=== PATIENT | male | born 1950 | race Caucasian/White ===

== ENCOUNTER 2016-02-27 09:28 | Inpatient (IN) ==
[2016-02-27] MEDS ORDERED: Naloxone 0.4 MG/ML INJ IVP PRN (10:09)
[2016-02-27] MEDS ORDERED: Acetaminophen 325 MG TABLET PO PRN (10:09)
--- NOTE | 2016-02-27 10:33 | Cardiology History & Physical ---
Date of Encounter: 02/27/16 Time of Encounter: 09:45 Assessment and Plan (1) Abnormal stress test Current Visit: Yes Status: Acute Stress test findings reviewed with patient. Perfusion imaging was positive for ischemia. EKG was non-diagnostic d/t baseline EKG changes. There was also EKG artifact during exercise. AT 1 min in recovery there was 1-[address] depression in the inferior and lateral leads and 1.[address] elevation in AVR which persisted 17 min into recovery. Blunted b/p response noted. Gated EF 64%. There is evidence of TID. Perfusion:small to medium sized mild intensity perfusion defect during stress involving the mid- distal anterior wall and apex. D/t high risk findings he was recommended to be admitted for further evaluation. [facility] indications, risks, benefits, and alternatives discussed. He is agreeable to proceed. Cardiac risk factors include family history, tobacco use, and hypertension. We will check CBC, BMP, pt/INR. Check TTE. Add lisinopril for b/p control. Asa, statin, and bb. NTG SL prn chest pain. (2) Chest pain Current Visit: Yes Status: Acute Typical chest pain. Chest pain resolved with addition of oxygen. NTG PRN. See plan above. Qualifiers: Ischemic chest pain type: unstable angina pectoris Qualified Code(s): I20.0 - Unstable angina (3) Hypertension Current Visit: Yes Status: Acute B/p 164/84. Start lisinopril. Low sodium diet. Qualifiers: Hypertension type: essential hypertension Qualified Code(s): I10 - Essential (primary) hypertension History of Present Illness Chief complaint: Chest pain HPI: Mr. Enciso is a 65 year old male with a history of hypertension who presented for an outpatient stress test ordered by Dr. Scott. His stress test was ordered for intermittent chest pain over the past few months. He describes a left sided pain radiating to his left shoulder with exertion. His pain is associated with SOB. The pain lasts 10-15 minutes and resolves on its own. During his nuclear exercise stress test today he developed mid-sternal chest pain radiating to his elbow. There was significant ST depression seen within one minute in recovery. His pain lasted several minutes prior to being relieved after oxygen was applied. His ST changes resolved seventeen minutes into recovery. His stress perfusion imaging was found to be abnormal. D/t high risk findings he was recommended to be admitted for further evaluation and left heart catheterization. He denies previous history of CAD. He was diagnosed with hypertension a few years ago but has not required medication. Past Med Surg Social Fam HX - Past Medical History Medical history: hypertension - Social History Smoking Status: Light tobacco smoker (Occasional cigar smoking over last 20 years) - Family History Brother Hx Family Cardiac Disorders: Yes (Cardiac stent in his late 40's) Father Living Status: Age at : 57 Cause of : Liver failure Hx Family Cardiac Disorders: Yes (PPM) Hx Family Respiratory Disorders: Yes Hx Family Cancer: No Hx Family GI Disorders: No Hx Family Genitourinary Disorders: No Hx Family Endocrine Disorder: Yes Hx Family Musculoskeletal Disorders: No Hx Family Neuromuscular Disorders: Yes Hx Family Neurologic Disorders: No Hx Family HEENT Disorders: No Hx Family Autoimmune Disorders: No Hx Family Reproductive Disorders: No Hx Family Psychosocial Disorders: No Hx Family Medical Disorders: No Medications and Allergies Bismuth Subsalicylate [PEPTO-BISMOL (262mg/15mL) Susp] 30 ml PO QID PRN [History] Potassium Gluconate 90 mg PO DAILY 02/27/16 [History] Tadalafil [Cialis] 20 mg PO DAILY PRN 02/27/16 [History] Allergies No Known Drug Allergies Allergy (Unknown, Verified 02/27/16 10:07) See Comments All Systems Review: A 10-system review of systems was performed and is negative for pertinent findings except as documented above in the HPI. Physical Examination B/p 160/89, HR 89 General: Conversant, No Apparent Distress HEENT: Atraumatic, Normocephaly, Mucus Membranes Moist Neck: No JVD, Normal carotid pulses Cardiac: Reg Rate and Rhythm, Normal S1 and S2, No Murmur Lungs: Normal Breath Sounds, No Wheeze, Rales, Rhonchi Neuro: Alert and responsive, No focal deficits noted Abdomen: Soft, Non-Tender Skin: No rashes noted on visualized skin Musculoskeletal: No Chest Wall Tenderness Extremities: No Clubbing, No Cyanosis, No Edema, Normal Pulses Results - Imaging and Cardiology Stress Test: report reviewed (Perfusion imaging was positive for ischemia. EKG was non-diagnostic d/t baseline EKG changes. There was also EKG artifact during exercise. AT 1 min in recovery there was 1-[address] depression in the inferior and lateral leads and 1.[address] elevation in AVR which persisted 17 min into recovery. Blunted b/p response noted. Gated EF 64%. There is evidence of TID. Perfusion:small to medium sized mild intensity perfusion defect during stress involving the mid-distal anterior wall and apex.) - EKG Interpretation EKG results cardiology: personally reviewed (Baseline EKG showed SR with non- specific ST changes.)
[2016-02-27] MEDS: Aspirin Enteric Coated 81 MG Tablet PO SCH (10:42)
[2016-02-27] MEDS ORDERED: Nitroglycerin 0.4 MG TAB.SUBL SL PRN (10:49)
[2016-02-27 11:01] LABS: Basophils # 0.1 K/mcL (0.0-0.2); Basophils % 1.2 %; Eosinophils # 0.2 K/mcL (0.0-0.6); Eosinophils % 3.9 %; Hematocrit 39.4 % (37.5-50.1); Hemoglobin 13.8 g/dL (12.9-16.9); Immature Granulocytes % 0.6 % (0-4); Lymphocytes # 1.2 K/mcL (0.6-4.6); Lymphocytes % 22.7 %; Mean Corpuscular Hemoglobin 31.4 pg (28.0-33.3); Mean Corpuscular Volume 89.7 fL (83.0-100.0); Mean Platelet Volume 8.6 fL (9.4-12.4); Monocytes # 0.7 K/mcL (0.0-1.3); Monocytes % 13.1 %; Platelet Count 211 K/mcL (140-400); Red Blood Count 4.39 M/mcL (4.19-5.50); Red Cell Distribution Width 14.7 % (11.5-14.5); Segmented Neutrophils % 58.5 %
[2016-02-27 11:10] LABS: Prothrombin Time 11.1 Seconds (9.4-12.1)
[2016-02-27 11:13] LABS: Activated Partial Thrombo Time 29.1 Seconds (26.0-36.0)
[2016-02-27 11:18] LABS: Alanine Aminotransferase 66 Units/L (0-55); Albumin 3.6 g/dL (3.5-5.0); Alkaline Phosphatase 60 Units/L (38-126); Aspartate Amino Transferase 41 Units/L (5-34); BUN/Creatinine Ratio 12 (6-26); Bilirubin,Total 1.9 mg/dL (0.2-1.2); Blood Urea Nitrogen 12 mg/dL (8-26); Carbon Dioxide 22 mEq/L (19-29); Chloride 108 mEq/L (98-109); Globulin 3.6 g/dL (2.4-3.5); Glucose 119 mg/dL (70-99); Osmolality,Calculated 291 (280-300); Potassium 4.4 mEq/L (3.5-4.5); Sodium 140 mEq/L (136-145); Total Protein 7.2 g/dL (6.0-8.3); eGFR For African Americans > 60 (> 60); eGFR For Non-African Americans > 60 (> 60)
--- NOTE | 2016-02-27 14:18 | Electrocardiograph Report ---
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
[2016-02-27 15:12] LABS: Hemoglobin A1C 4.9 %
[2016-02-27] MEDS: Metoprolol XL (24 HR) Succ 25 MG TAB.ER.24H PO SCH (16:29)
[2016-02-28] MEDS: Metoprolol XL (24 HR) Succ 25 MG TAB.ER.24H PO SCH (06:38)
[2016-02-28] MEDS: Aspirin Enteric Coated 81 MG Tablet PO SCH (06:38)
--- NOTE | 2016-02-28 08:02 | ECHO - Doppler Report ---
Echocardiogram Name: Luis Alberto Enciso Date of Study: 02/27/2016 Date: 1950 Ht: 69.0 in Medical Record#: [id number] Age: 65 Wt: 271.0 lb Gender: Male BSA: 2.35 Order #: [id number] Location: [facility] Room #: 2A13 Reading Physician: Aroldo Fleming MD, [facility] Core Dropper: Alexandrea Mast RDCS Ordering Physician: Bebo Dahl CNP Primary Physician: Yesenia Shaw MD Indications: Chest pain Impressions: Normal left ventricular size and systolic function, LVEF 55-60%. Mild concentric left ventricular hypertrophy. Moderate left ventricular diastolic dysfunction. Normal right ventricular size and function. No significant valvular dysfunction. Unable to estimate RVSP due to lack of TR jet. Left Ventricular Wall Motion: Rest Echo Findings All wall segments showed normal motion. Findings: Study Quality * Suboptimal echo windows. ECG Findings * Normal sinus rhythm. Left Ventricle * Normal left ventricular size and systolic function, LVEF 55-60%. * Mild concentric left ventricular hypertrophy. * Moderate left ventricular diastolic dysfunction. Right Ventricle * Normal right ventricular size and function. Left Atrium * Normal left atrial size. Right Atrium * Normal right atrial size. Aorta * Normally sized aortic root. Pericardium * There is no pericardial effusion present. IVC * The IVC is not well evaluated. Aortic Valve * Trileaflet aortic valve. * No aortic stenosis. * No aortic regurgitation. Mitral Valve * Normal mitral valve structure. * No mitral stenosis. * Trace mitral regurgitation. Tricuspid Valve * Tricuspid valve not well visualized. * No tricuspid stenosis. * Trace tricuspid regurgitation. * Unable to estimate RVSP due to lack of TR jet. Pulmonic Valve * Pulmonic valve not well visualized. * No pulmonic stenosis. * Trace pulmonic regurgitation. History Hypertension Family History of CAD Measurements: BP: 166/ 94 2D Normal Values RVIDd: 3.15 cm IVSd: 1.30 cm 0.6 - 1.0 cm LVIDd: 4.80 cm 3.7 - 5.6 cm LVPWd: 1.20 cm 0.6 - 1.1 cm LVIDs: 3.10 cm 1.5 - 3.6 cm AO: 3.00 cm < 4.0 cm LA volume: 37 Mitral Valve Peak E:.67 m/sec Peak A:.71 m/sec E/A Ratio:0.9 Updated by Aroldo Fleming MD, [facility] on 02/28/2016 7:54:57 AM electronically signed on 02/28/2016 7:55:42 AM with status of Final Wall Motion Bae: 1=Normal, 2=Hypokinesis, 3=Akinesis, 4=Dyskinesis, 5=Aneurysmal, 6=Hyperkinetic, X=Not Visualized (Blank)=Missing
--- NOTE | 2016-02-28 08:03 | Event Note ---
Date of Encounter: 02/28/16 Time of Encounter: 08:00 - Cardiology Event Note Mr. Enciso Is resting comfortably. Denies recurrent chest pain. Awaiting [facility] today for high risk abnormal stress test/ unstable angina. B/p improving. Continue asa and bb. Continue low dose lipitor. Monitor ast/alt. Mildly elevated but not greater than 3 x upper limits of normal. All questions answered. Chest X-Ray 02/27/16 10:13 IMPRESSION: 1. Minimal left basilar atelectasis. D/ / Delfino Argueta MD / Delfino Argueta MD Interpreting Provider: Delfino Argueta MD Vital Signs Temp Pulse Resp BP Pulse Ox 02/28/16 07:00 98.0 F 68 18 136/72 95 02/28/16 03:45 97.9 F 57 16 132/86 97 02/27/16 23:41 97.4 F L 68 16 159/91 96 02/27/16 19:59 97.6 F 70 20 139/79 96 02/27/16 16:14 97.5 F L 72 16 166/94 98 02/27/16 10:38 98.3 F 76 16 158/100 97 Intake and Output 02/27/16 02/27/16 02/28/16 15:59 23:59 07:59 Intake Total 0 / 0 1050 / 1050 60 / 60 Output Total 1000 / 1000 Balance 0 / 0 50 / 50 60 / 60 Intake: Oral 0 / 0 1050 / 1050 60 / 60 Output: Urine 1000 / 1000 Other: Meal npo Adriel Francisco Percent of Meal Consumed 0% # Voids 2 Weight 123 kg Short CBC 02/27/16 Range/Units 10:30 WBC 5.2 (4.3-11.1) K/mcL Hgb 13.8 (12.9-16.9) g/dL Hct 39.4 (37.5-50.1) % Plt Count 211 (140-400) K/mcL Neutrophils # 3.0 (1.6-8.9) K/mcL BMP 02/27/16 Range/Units 10:30 Sodium 140 (136-145) mEq/L Potassium 4.4 (3.5-4.5) mEq/L Chloride 108 (98-109) mEq/L Carbon Dioxide 22 (19-29) mEq/L BUN 12 (8-26) mg/dL Creatinine 1.01 (0.72-1.25) mg/dL Glucose 119 H (70-99) mg/dL Calcium 9.0 (8.6-10.8) mg/dL Liver Function 02/27/16 Range/Units 10:30 Total Bilirubin 1.9 H (0.2-1.2) mg/dL AST 41 H (5-34) Units/L ALT 66 H (0-55) Units/L Alkaline Phosphatase 60 (38-126) Units/L Albumin 3.6 (3.5-5.0) g/dL
[2016-02-28] MEDS ORDERED: Heparin 1,000 UNITS/500 mL NS 500 ML ONE (12:48)
[2016-02-28] MEDS ORDERED: 0.9 % Sodium Chloride 1,000 ML ONE ×2 (12:48→12:57)
[2016-02-28] MEDS ORDERED: *HR* FentaNYL (PF) 100 MCG/2 ML VIAL ONE (12:48)
[2016-02-28] MEDS ORDERED: *HR* Heparin 10,000 UNIT/10 ML VIAL ONE (12:48)
[2016-02-28] MEDS ORDERED: *HR* Midazolam HCl 2 MG/2 ML VIAL ONE ×2 (12:48→13:12)
[2016-02-28] MEDS ORDERED: Verapamil 5 MG/2 ML VIAL ONE (12:48)
[2016-02-28] MEDS ORDERED: Nitroglycerin 1,000 MCG/10 ML VIAL IV ONE (12:49)
--- NOTE | 2016-02-28 13:06 | Pre-Sedation Evaluation ---
Pre-sedation evaluation - Pre-sedation checklist Date of procedure: 02/28/16 Procedure: CARDIAC CATHETERIZATION Recent Vitals: Last Vital Signs Temp 98.1 F 02/28/16 11:07 Pulse 70 02/28/16 11:07 Resp 17 02/28/16 11:07 BP 134/76 02/28/16 11:07 Pulse Ox 97 02/28/16 11:07 H&P (including ROS) documented in medical record: Yes Previous reaction to sedatives/anesthetics: No Dietary Status: NPO after Midnight Dentition: No loose teeth or bridges ASA Classification *see protocol: CLASS II-Mild systemic disease Plan of Care: Pt appropriate candidate for procedure/moderate/conscious sedation , Risks/benefits of procedure/sedation discussed w/ patient/family
--- NOTE | 2016-02-28 13:44 | Invasive Diagnostic Lab Proc ---
Name: Luis Alberto Enciso Date of Study: 02/28/2016 Date: 1950 Ht: 68.9in Medical Record#: [id number] Age: 65 Wt: 271.17lb Gender: Male BSA: 2.35 Order #: [id number] BMI: 40.16 Physicians Procedure Physician: Rogelio Jimenez MD, [facility] Referring MD: Referring MD: Staff Name Position Time In Olamide Garcia RT (R) Scrub 12:56 PM Sourav Angel RN Quilt Maker 12:56 PM Dorothea Brwon RN Monitor 12:56 PM Indications Indication Abnormal Test - Stress Procedures Performed Procedure L HRT ARTERY/VENTRICLE ANGIO Pre-Procedure Checklist Informed consent is complete signed and on chart. H\\T\\P is on chart. ID band is on and ID verified with patient. Patient NPO for procedure The procedure was described for the patient and questions were answered. ECG is on chart. Plan of Care Patient will tolerate the procedure without complications. Adequate level of comfort will be maintained. Hemodynamics will remain stable Patient will recover from procedure without complications. Respiratory function will be maintained. Cardiac rhythm will remain stable. Patient temperature will be maintained. Patient and/or family have verbalized understanding of the procedure. Patient Education Chief Complaint/Reason for Test: Cardiac Cath Developmental Category: Geriatric (65+ years) Developmentally Appropriate for Age: Yes Learning Barriers: None Education Needs: Procedure Education Method: Verbal Information Taught: Cardiac Cath Educational Evaluation: Able to repeat information Intravenous Access Time IV Size Location DC'd Fluid/Drip Rate Units RN 01:01 PM 18g 1 1/" Patent On Arrival Lt Hand 0.9NaCl 25 ml/hr Sourav Angel RN 01:01 PM 22g 1" Patent On Arrival Rt Antecubital Allergies No Known Drug Allergies Vital Signs Time BP (mmHg) HR (bpm) O2 Sat. RR (bpm) LOC 01:06 PM / % 5 = Fully awake and oriented or at pre-proc level 01:01 PM 163 / 87 76 96 % 14 01:05 PM 148 / 84 72 96 % 19 01:10 PM 162 / 82 72 95 % 12 5 = Fully awake and oriented or at pre-proc level 01:15 PM 132 / 61 78 93 % 21 5 = Fully awake and oriented or at pre-proc level 01:21 PM 136 / 59 76 90 % 13 01:06 PM / % 5 = Fully awake and oriented or at pre-proc level Procedural Medications Time Medication Dose Units Method Given By 01:06 PM Versed 2 mg Intravenous Sourav Angel RN 01:06 PM Fentanyl 50 mcg Intravenous Sourav Angel RN 01:11 PM Lidocaine 2% 1 ml Subcutaneous Rogelio Jimenez MD, [facility] 01:12 PM Lidocaine 2% 1 ml Subcutaneous Rogelio Jimenez MD, [facility] 01:13 PM Versed 1 mg Intravenous Sourav Angel RN 01:13 PM Fentanyl 25 mcg Intravenous Sourav Angel RN 01:14 PM Heparin 4000 units Nitroglycerin 200 mcg Verapamil 2.5 mg Intraarterial Rogelio Jimenez MD, [facility] ASA Classification: CLASS II- Mild systemic disease (i.e. well-controlled diabetes, hypertension, asthma, cigarette smoking) Letty Score Preprocedure Postprocedure Activity 2- Moves 4 extremities sustained head lift Activity 2- Moves 4 extremities sustained head lift Circulation 2- SBP +/= 20 points of pre-anesthetic level Circulation 2- SBP +/= 20 points of pre-anesthetic level Consciousness 2- Awake and alert oriented x 3 Consciousness 2- Awake and alert oriented x 3 O2 Saturation 2- Able to maintain O2 satruation of 92% on room air O2 Saturation 2- Able to maintain O2 satruation of 92% on room air Respiratory 2- Able to deep breathe and cough well Respiratory 2- Able to deep breathe and cough well Total Score 10 Total Score 10 Contrast Agent: Isovue Diagnostic Contrast: 54 ml Total Contrast: 54 ml Fluoro Dose: 181 mGy Procedure Log Time Note Enter By 12:56 PM Pt arrived to woods laborer 2 at 12:56 ejohnson 12:56 PM Olamide Garcia RT (R) Position: Scrub Time in: 12:56 ejohnson 12:56 PM Sourav Angel RN Position: Quilt Maker Time in: 12:56 ejohnson 12:56 PM Dorothea Brown RN Position: Monitor Time in: 12:56 ejohnson 12:56 PM Patient charges- Angio tray pack, Navilyst 3mm J, Pulse Oximetry and ACIST tubing and transducer ejohnson 12:56 PM Case Delayed No ejohnson 12:56 PM Meet and greet completed ejohnson 12:56 PM Sign in performed according to hospital policy. ejohnson 12:57 PM Procedure start 12:56 ejohnson 12:57 PM Hair removed from procedure site in procedure lab using clippers. Right wrist and right groin prepped with Chloraprep by Sourav Angel RN then patient draped. Skin intact. ejohnson 01:00 PM Vitals capture started with the following parameters, Patient=Adult, Interval=5 min, Initial Bzrdfndj=828 mmHg, Deflation Rate=5 mmHg, Cuff placed on Right Arm 01:00 PM CathStat 01:01 PM HR=76 bpm, UAKX=598/87 mmhg, SpO2=96.0 %, Resp=14 B/min, Comment=SR 01:05 PM HR=72 bpm, LPAP=872/84 mmhg, SpO2=96.0 %, Resp=19 B/min, Comment=SR 01:06 PM Time: 13:06 Versed 2 mg Intravenous Given by Sourav Angel RNohnsbrooks 01:06 PM Time: 13:06 Fentanyl 50 mcg Intravenous Given by Sourav Angel RNohcandy 01:06 PM Time: 13:06 Patient comfortable and pain free: Yes ejohnson 01:06 PM Time: 13:06LOC: 5 = Fully awake and oriented or at pre-proc level ejohnson 01:07 PM Recorded ECG: HR=75 Condition=Condition 1 01:08 PM Pressure channel 1 zero failed. 01:08 PM Pressure channel 1 zeroed. 01:10 PM HR=72 bpm, EYDD=446/82 mmhg, SpO2=95.0 %, Resp=12 B/min, Comment=SR 01:11 PM Time out performed according to hospital policy ejohnson 01:11 PM Time: 13:11 1 ml Lidocaine 2% to right radial Subcutaneous Given by Rogelio Jimenez MD, [facility] ejohnson 01:12 PM Time: 13:12 1 ml Lidocaine 2% to right radial Subcutaneous Given by Rogelio Jimenez MD, [facility] ejohnson 01:13 PM Time: 13:13 Versed 1 mg Intravenous Given by Sourav Angel RNohcandy 01:13 PM Time: 13:13 Fentanyl 25 mcg Intravenous Given by Sourav Angel RN 01:14 PM Access obtained by percutaneous puncture. 6Fr 10cm Terumo Glidesheath sheath placed in right Radial artery. [id number] ejohnson 01:14 PM Time: 13:14 Patient given 4,000 units Heparin, 200 mcg Nitroglycerin, and 2.5 mg Verapamil Intraarterial by Rogelio Jimenez MD, FAC ejohnson 01:15 PM 5Fr TIG catheter inserted over the wire DN ejohnson 01:15 PM HR=78 bpm, QXHH=232/61 mmhg, SpO2=93.0 %, Resp=21 B/min, Comment=SR 01:16 PM Recorded Pressure: Ao, HR=78, Condition=Condition 1 (Aorta) Ao 84/62/73 01:16 PM LCA angiography performed in multiple views. ejohnson 01:18 PM Recorded Pressure: Ao, HR=76, Condition=Condition 1 (Aorta) Ao 81/59/69 01:18 PM RCA angiography performed in multiple views. ejohnson 01:19 PM Catheter removed ejohnson 01:19 PM 5Fr Pigtail catheter inserted over the wire [facility] ejohnson 01:19 PM Catheter selectively placed in left ventricle ejohnson 01:20 PM Pressure channel 1 zeroed. 01:20 PM Recorded Pressure: LV, HR=95, Condition=Condition 1 (Left Ventricle) LV 115/16/23 01:20 PM Bolus angiogram of left Ventricle complete: 10 ml/sec for a total of 30 mls ejohnson 01:20 PM Recorded Pressure: LV, Ao, HR=98, Condition=Condition 1 (Left Ventricle) LV 119/41/37, (Aorta) Ao 107/69/83 01:21 PM Catheter removed ejohnson 01:21 PM HR=76 bpm, BBAB=255/59 mmhg, SpO2=90.0 %, Resp=13 B/min, Comment=SR 01:21 PM Procedure completed at 13:21 ejohnson :22 PM Time: 13:06LOC: 5 = Fully awake and oriented or at pre-proc level ejohnson :22 PM Time: 13:06 Patient comfortable and pain free: Yes ejohnson :23 PM Sign out completed: Radiation Dose 181.12 mGy Fluoro Time: 1.2 Isovue 370 - 200ml contrast 54 ml given by Rogelio Jimenez MD, [facility]. Complications: NoneCardiac Rehab Consult needed: YesConfirmed administered medications: Yes ejohnson 01:23 PM Isovue 370 - 200ml,1 Bottle(s) used. ejohnson 01:23 PM Arterial sheath pulled, Vasc Band closure device used and was Successful S/N. ejohnson 01:24 PM 11 ml air in Vasc Band. ejohnson 01:24 PM Post ECG NSR ejohnson 01:24 PM Post Blood Pressure 136/59 ejohnson 01:24 PM 13:24 Post Pulses Rt Radial 1+ ejohnson 01:24 PM Information taught Vasc Band ejohnson 01:24 PM Education needs Plan of Care and Responsibilities of Patient in Care ejohnson 01:24 PM Learning barriers :None ejohnson 01:24 PM Education Methods Verbal ejohnson 01:25 PM Education evaluation Able to repeat information ejohnson 01:25 PM Site status No bleeding/hematoma - Rt Wrist as reported by Olamide Garcia RT (R) at 13:25 ejohnson 01:25 PM Plavix, Effient or Brilinta given No ejohnson 01:25 PM Delay to floor No ejohnson 01:25 PM Family placed in none available. ejohnson 01:25 PM Complications: None ejohnson 01:25 PM ejohnson 01:26 PM Family placed in none here and patient doesn't want anyone notified. ejohnson 01:26 PM Coronary Dominance: right ejohnson 01:26 PM Lesion found in Proximal RCA. Pre Stenosis: 90 Pre ADDIS Flow: 3: Complete and Brisk Flow/Perfusion ejohnson 01:27 PM Left Main Coronary Artery with 50% stenosis ejohnson 01:27 PM Lesion found in LMCA. Pre Stenosis: 50 Pre ADDIS Flow: 3: Complete and Brisk Flow/Perfusion ejohnson 01:27 PM Lesion found in Proximal LAD. Pre Stenosis: 95 Pre ADDIS Flow: 3: Complete and Brisk Flow/Perfusion ejohnson 01:27 PM Lesion found in Proximal Circumflex. Pre Stenosis: 80 Pre ADDIS Flow: 3: Complete and Brisk Flow/Perfusion ejohnson 01:28 PM Proximal Left Anterior Descending Coronary Artery with 95% stenosis. ejohnson 01:28 PM Circumflex, Obtuse Marginal, Left Posterior Descending, and Left Posterolateral Coronary Arteries with 80 % stenosis. ejohnson 01:28 PM Right Coronary, Right Posterior Descending Arteries with Right Posterolateral and Acute Marginal branches with 90 % stenosis. ejohnson 01:36 PM Report given to Clau CAMPOS Pt taken to 2A Room #13. 13:36 ejohnson 01:36 PM Delay to floor No ejohnson 01:36 PM Patient out of room: 13:36 ejohnson Complications Complication None Hemodynamics Pressures Site Systolic/A Wave Diastolic/V Wave Mean AO 84 62 73 AO 81 59 69 LV 115 16 23 LV 119 41 37 AO 107 69 83 Post Procedure Information Blood Pressure: 136/59 mmHg Rhythm: NSR Post procedural instructions were given Surgery consult for CABG Closure Device Time Device Success/Fail 02/28/2016 1:21:00 PM MynxGrip Successful Site Checks Time Location Status Staff Sheath In? Note 01:25 PM Rt Wrist No bleeding/hematoma Olamide Garcia RT (R) Pulses Time Site Pre-Procedure Post-Procedure Note 1:24:00 PM Rt Radial 1+ Updated by Dorothea Brown RN on 02/28/2016 1:38:50 PM Dorothea Brown RN electronically signed on 02/28/2016 1:39:11 PM with status of Final
--- NOTE | 2016-02-28 14:31 | Invasive Diagnostic Lab ---
Name: Luis Alberto Enciso Date of Study: 02/28/2016 Date: 1950 Ht: 175.0 cm /68.9 in Medical Record#: [id number] Age: 65 Wt: 123. kg / 271.17 lb Account/Order#: [id number] Gender: Male BSA: 2.35 Order #: [id number] Fluoro Dose: 181 mGy BMI: 40.16 Procedure Physician: Rogelio Jimenez MD, FACC Referring MD: Referring MD: Procedures Performed: LEFT HEART CATH Indications: Abnormal Test - Stress Impressions: There is severe three vessel coronary artery disease. The left ventricle is normal and has normal contractility EF 55 % Recommendations: Optimal medical therapy of patient's disease. Aggressive risk factor modification. High tercile SYNTAX I score, recommend patient have Elective coronary artery bypass surgery over high risk complex PCI. History/Risk Factors: Hypertension Procedure Access obtained in the right Radial artery by percutaneous puncture Complications: None Contrast: Isovue 54ml Hemodynamics: Pressures Site Systolic/ A Wave Diastolic/ V Wave End Diastolic/ Mean HR AO 84 62 73 78 AO 81 59 69 76 LV 115 16 23 95 LV 119 41 37 99 AO 107 69 83 97 LV Ventriculography Ejection Method: LV Gram Ejection Fraction: 55-60% Wall Motion: BRUNER Anterobasal Normal Anterolateral Normal Apical: Normal Inferoapical Normal Inferobasal Normal Coronary Dominance: right Lesion Findings/Interventions * Left Main Coronary Artery There is a 50% stenosis in the LMCA. The lesion has a ADDIS flow of 3. * Left Anterior Descending There are 2 lesions 70% and 95% stenosis in the Proximal LAD. The lesion has a ADDIS flow of 3. * Circumflex There is a 80% Hazy stenosis in the Proximal Circumflex. The lesion has a ADDIS flow of 3. * Right Coronary Artery There is a 70-90% long lesion stenosis in the Proximal-MID RCA. The lesion has a ADDIS flow of 3. Updated by Dorothea Brown RN on 02/28/2016 1:34:23 PM Rogelio Jimenez MD, FACC electronically signed on 02/28/2016 2:27:26 PM with status of Final
--- NOTE | 2016-02-28 15:57 | Anesthesia Evaluation PreOp ---
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 Reports severe PONV after anesthesia) Alcohol Use: none Drug use: none Medications and Allergies Bismuth Subsalicylate [PEPTO-BISMOL (262mg/15mL) Susp] 30 ml PO QID PRN [History] Potassium Gluconate 90 mg PO DAILY 02/27/16 [History] Tadalafil [Cialis] 20 mg PO DAILY PRN 02/27/16 [History] Allergies No Known Drug Allergies Allergy (Unknown, Verified 02/27/16 10:07) See Comments - Meds/Allergy Pre-op Review Medications Reviewed: Yes Allergies Reviewed: Yes Beta Blockers on Current Med List: No Anesthesia Results - Labs 02/27/16 10:30 02/27/16 10:30 - Imaging EKG: report reviewed Chest x-ray: report reviewed Additional studies: Cath shows 3 vessel disease and EF 55% Anesthesia Exam Selected Entries 02/29/16 04:31 Temperature 98.3 F Pulse Rate 77 Respiratory Rate 16 Blood Pressure 135/66 O2 Sat by Pulse Oximetry 96 Height: 69in Weight: 271lbs/123kg NPO (# of Hours): 8 Pain Scale: 0 Pain Scale Used: Numeric (1 - 10) - HEENT Pupil (Motor): EOMI Mallampati: II Teeth: Normal Oral Opening: Greater than 3 - PROFESSIONAL ENGINEER LOC: Oriented PROFESSIONAL ENGINEER Motor: Normal RUE, Normal LUE, Normal RLE, Normal LLE, Normal Face PROFESSIONAL ENGINEER Sensory: Normal: RUE, LUE, RLE, LLE, Face - Cardiac Rhythm: Regular Murmur: None - Pulmonary Breath Sounds: bilateral Clear Respiratory Effort: Symmetrical Anesthesia Assess/Plan ASA Score: 4 Modified [place] Scale for Level of Consciousness: Cooperative, oriented, and tranquil Anesthetic Plan: General Autologous Blood: No Monitoring Plan: Standard Monitors, A-Line, PAC, DB Recovery Plan: ICU (Discussed risks of GA, lines and blood products. Discussed possible need of DB. Questions answered. Agrees to proceed.)
--- NOTE | 2016-02-28 18:12 | Cardiothoracic Consult Note ---
Date of Encounter: 02/28/16 Time of Encounter: 18:08 Assessment and Plan (1) Chest pain Current Visit: Yes Status: Acute The patient is a 65-year-old moderately obese, but otherwise healthy man with a 6 month history of progressive exertional substernal chest pain and shortness of breath. Patient underwent an extensive cardiac workup and cardiac catheterization performed today revealed severe three-vessel CAD. The patient has been recommended for CABG. The patient understands the procedure, with its, alternatives, and risk, including but not limited to bleeding, infection, myocardial infarction, acute renal failure, phrenic nerve injury, postoperative respiratory insufficiency/ventilator dependence, sternal dehiscence, graft closure, and . He gives his informed consent to proceed with CABG in the morning. The assessment and plan as outlined above was discussed with the patient and/or family members who expressed understanding and agreement. All questions were answered. Qualifiers: Ischemic chest pain type: unstable angina pectoris Qualified Code(s): I20.0 - Unstable angina - History of Present Illness Consult date: 02/28/16 Requesting physician: Rogelio Jimenez Consult reason: CABG evaluation. Chief complaint: Substernal chest pain, shortness of breath. History of present illness: Mr. Enciso is a 65 year old moderately obese, but otherwise healthy man was experienced exertional substernal chest pain radiating to his left arm during the last 6-12 months. Initially, the patient states that he would have vague substernal chest discomfort and did not require him to stop his activity. Approximately 6 months ago; however, he began having more frequent and severe substernal chest pain with activity. The pain would radiate was left shoulder and be associated with shortness of breath and dyspnea on exertion. He would stop his activity and the pain would resolve within 2-3 minutes. More recently, the pain has required at least 10-15 minutes of rest in order to resolve. He has also experienced increasing fatigue, and states that he is sleeping more hours each day. He mentioned the symptoms to his primary care physician who referred him for a cardiac workup. The patient underwent an outpatient exercise stress test which was markedly abnormal. Within 2-3 minutes the patient had markedly ST segment depression and the test was terminated. At the end of the test the patient also experienced lightheadedness which he had not had before. The ECG changes and his symptoms persisted for at least 15 minutes after the exercise portion had stopped. The patient underwent a cardiac catheterization today was found to have severe 3 vessel CAD. In particular the patient was found to have an 50% distal left main lesion, tandem 70% and 95% proximal LAD lesions, an 80% proximal LCx lesion , and a long 70-80% proximal-mid RCA lesion. The patient has been recommended for CABG. Past Med Surg Social Fam HX - Past Medical History Medical history: coronary artery disease, hypertension, kidney stones Psychiatric history: no psych history - Past Surgical History Surgical History: other (Internal fixation of left tibial fracture, right "knee surgery".) - Social History Smoking Status: Light tobacco smoker (Occasional cigar smoking over last 20 years) Smokeless Tobacco Status: No Alcohol use: none Drug use: none Occupational status: employed Current living situation: Home - Independent Activity Level: Independent ambulation Recent Out of Country Travel Within the Last 8 Weeks: No Exposure or Possible Exposure to Illness During Travel: No - Family History Father Living Status: Age at : 57 Cause of : Liver failure Hx Family Cardiac Disorders: Yes (PPM) Hx Family Respiratory Disorders: Yes Hx Family Cancer: No Hx Family GI Disorders: No Hx Family Genitourinary Disorders: No Hx Family Endocrine Disorder: Yes Hx Family Musculoskeletal Disorders: No Hx Family Neuromuscular Disorders: Yes Hx Family Neurologic Disorders: No Hx Family HEENT Disorders: No Hx Family Autoimmune Disorders: No Hx Family Reproductive Disorders: No Hx Family Psychosocial Disorders: No Hx Family Medical Disorders: No Brother Hx Family Cardiac Disorders: Yes (Cardiac stent in his late 40's) Medications and Allergies Bismuth Subsalicylate [PEPTO-BISMOL (262mg/15mL) Susp] 30 ml PO QID PRN [History] Potassium Gluconate 90 mg PO DAILY 02/27/16 [History] Tadalafil [Cialis] 20 mg PO DAILY PRN 02/27/16 [History] Allergies No Known Drug Allergies Allergy (Unknown, Verified 02/27/16 10:07) See Comments All Systems Review: A 10-system review of systems was performed and is negative for pertinent findings except as documented above in the HPI. Physical Examination Vital Signs, Last 4 Hours Temp Pulse Resp BP Pulse Ox 02/28/16 15:38 98.3 F 58 16 125/74 96 02/28/16 15:10 97.8 F 58 16 128/81 96 02/28/16 14:40 97 F L 58 16 117/74 97 02/28/16 14:25 97.9 F 58 18 128/74 98 02/28/16 14:10 98.2 F 65 18 126/79 96 General: Conversant, No Apparent Distress HEENT: Atraumatic, Normocephaly, Trachea midline Neck: No JVD, Normal carotid pulses Cardiac: Reg Rate and Rhythm, Normal S1 and S2, No Murmur Lungs: Normal Breath Sounds, No Wheeze, Rales, Rhonchi Neuro: Alert and responsive, No focal deficits noted, Motor nerves intact, Sensory nerves intact Vascular: Normal capillary refill Abdomen: Soft, Non-tender Skin: No rashes noted on visualized skin Musculoskeletal: No Chest Wall Tenderness Extremities: No Clubbing, No Cyanosis, No Edema, Normal Pulses Results 02/27/16 10:30 02/27/16 10:30 - Imaging Chest Xray: image reviewed (Normal cardiac size Minimal left lower lobe atelectasis.) Consult Discharge Plan - Plan Referrals: Yesenia Shaw MD [Primary Care Provider] - 03/11/16 9:30 am
[2016-02-28] MEDS ORDERED: Artificial Tears SOLN 15 ML BOTTLE BOTH EYES PRN (18:18)
[2016-02-28] MEDS: Chlorhexidine Rinse 15 ML MOUTHWASH MM SCH (20:07)
[2016-02-29] MEDS: Metoprolol XL (24 HR) Succ 25 MG TAB.ER.24H PO SCH (06:20)
[2016-02-29] MEDS: Chlorhexidine Rinse 15 ML MOUTHWASH MM SCH ×2 (06:20→21:18)
[2016-02-29] MEDS: Aspirin Enteric Coated 81 MG Tablet PO SCH (06:20)
[2016-02-29] MEDS ORDERED: Nitroglycerin 25 MG/250 ML INFUS..BTL IVC ONE ×2 (06:35→10:39)
[2016-02-29] MEDS ORDERED: NiCARdipine 2.5 MG/10 ML Syringe IVPB ONE (06:36)
[2016-02-29] MEDS ORDERED: *HR* Phenylephrine 10 MG/ML VIAL ONE (06:42)
[2016-02-29] MEDS ORDERED: *HR* Norepinephrine 4 MG/4 ML VIAL IVC ONE (06:42)
[2016-02-29] MEDS ORDERED: *HR* Rocuronium Bromide 50 MG/5 ML VIAL ONE ×3 (06:42→11:17)
[2016-02-29] MEDS ORDERED: Tranexamic Acid 1,000 MG/10 ML VIAL ONE ×2 (06:43→09:19)
[2016-02-29] MEDS ORDERED: Famotidine 20 MG/2 ML VIAL ONE (06:43)
[2016-02-29] MEDS ORDERED: Protamine Sulfate 250 MG/25 ML VIAL IVP ONE (06:43)
[2016-02-29] MEDS ORDERED: *HR* Etomidate 20 MG/10 ML AMPUL IVP ONE (06:43)
[2016-02-29] MEDS ORDERED: *HR* FentaNYL (PF) 1,000 MCG/20 ML VIAL ONE (06:50)
[2016-02-29] MEDS ORDERED: *HR* Midazolam HCl 5 MG/5 ML VIAL IVP ONE (06:50)
[2016-02-29] MEDS ORDERED: D5% in Water 250 ML ONE (06:55)
[2016-02-29] MEDS ORDERED: ceFAZolin 3,000 MG in D5% in Water 100 ML IVPB ONE (07:00)
[2016-02-29] MEDS ORDERED: Dexamethasone 4 MG/ML VIAL ONE (08:23)
[2016-02-29] MEDS ORDERED: Ondansetron 4 MG/2 ML VIAL ONE (08:23)
[2016-02-29] MEDS: Ringers Solution, Lactated 1,000 ML IVC SCH ×2 (08:53→11:20)
--- NOTE | 2016-02-29 09:36 | Anesthesia Procedures ---
Date of Encounter: 02/29/16 Time of Encounter: 07:40 Procedures: Anesthesia - Arterial Line Consent obtained: written consent Time out performed: Yes Sedation: Versed (mg): 2 Sedation: Fentanyl (mcg): 100 Supplemental Oxygen via Nasal Cannula (L/min): 2 Size (Gauge): 20 Length (inches): 5 Technique Used: sterile prep, guide wire technique, direct puncture technique Post-Procedure: line taped into place Patient tolerated procedure: well, no complications Complications: none Site: Radial L (attempt x 1) - Central Line Placement Right IJ Consent obtained: written consent Time out performed: Yes Patient placed on monitor/pulse ox: Yes MD prep: mask, gown, gloves Central line prep: Chlorhexidine scrub Local Anesthetic Used: Lidocaine 1% (3) Amount of Anesthetics Used (mls): 3 Ultrasound used for placement: Yes Technique: Seldinger Lumen Inserted: Introducer Post procedure: sutured in place, good blood return, all ports aspirated, flushed, capped, sterile dressing applied Patient tolerated procedure: well, no complications (attempt x 1, placed easily. Taiban placed without issues. Wedge approx 65cm)
[2016-02-29] MEDS ORDERED: Albumin Human 5% 50.0 GM/1,000 ML VIAL ONE (10:39)
[2016-02-29] MEDS ORDERED: Acetaminophen 650 MG RECTAL SUPP RC PRN (11:18)
[2016-02-29] MEDS ORDERED: Potassium Chloride 40 MEQ/200 ML BAG IVPB PRN (11:18)
[2016-02-29] MEDS ORDERED: *HR* Dextrose 50 % in Water (Syg) 50 ML SYRINGE IVP PRN (11:18)
[2016-02-29] MEDS ORDERED: Insulin Regular, Human 100 UNIT/ML IV PRN (11:18)
[2016-02-29] MEDS ORDERED: *HR* Morphine 2 MG/ML SYRINGE IVP PRN (11:18)
[2016-02-29] MEDS ORDERED: Magnesium Sulfate 2 GM in D5% in Water 100 ML IVPB PRN (11:18)
[2016-02-29] MEDS ORDERED: Calcium Chloride 1,000 MG in 0.9 % Sodium Chloride 100 ML IVPB PRN (11:18)
[2016-02-29] MEDS ORDERED: Norepinephrine 4 MG in D5% in Water 250 ML IVC SCH (11:30)
[2016-02-29] MEDS ORDERED: 0.9 % Sodium Chloride w KCl 20 MEQ/1,000 ML MLS IVC SCH (11:30)
[2016-02-29] MEDS ORDERED: Nitroglycerin 25 MG/250 ML INFUS..BTL IVC SCH (11:30)
[2016-02-29] MEDS ORDERED: Insulin Human Regular 100 UNIT in 0.9 % Sodium Chloride 100 ML IV SCH (11:30)
[2016-02-29] MEDS ORDERED: niCARdipine 40 MG/200 ML MLS IVC SCH (11:30)
[2016-02-29] MEDS ORDERED: Ondansetron 4 MG/2 ML VIAL IVP SCH (11:30)
--- NOTE | 2016-02-29 11:32 | Operative Note ---
Date of procedure: 02/29/16 Pre-op diagnosis: CAD Post-op diagnosis: same Procedure: 1. CABG3 (QUINTEROS to LAD, SVG to OM1, SVG to PDA). 2. Endoscopic vein harvesting, greater saphenous vein from right lower extremity. Implants: None. Complications: None. Anesthesia: ANAA Surgeon: Kaylene Bacon Movement Assembly Final Inspector: Garcia Arriaga Specimen: None. Condition: stable Disposition: ICU Procedure in Detail: INDICATIONS FOR OPERATION: The patient is a 65 year old moderately obese, but otherwise healthy man was experienced exertional substernal chest pain radiating to his left arm during the last 6-12 months. Initially, the patient states that he would have vague substernal chest discomfort and did not require him to stop his activity. Approximately 6 months ago; however, he began having more frequent and severe substernal chest pain with activity. The pain would radiate was left shoulder and be associated with shortness of breath and dyspnea on exertion. He would stop his activity and the pain would resolve within 2-3 minutes. More recently, the pain has required at least 10-15 minutes of rest in order to resolve. He has also experienced increasing fatigue, and states that he is sleeping more hours each day. He mentioned the symptoms to his primary care physician who referred him for a cardiac workup. The patient underwent an outpatient exercise stress test which was markedly abnormal. Within 2-3 minutes the patient had markedly ST segment depression and the test was terminated. At the end of the test the patient also experienced lightheadedness which he had not had before. The ECG changes and his symptoms persisted for at least 15 minutes after the exercise portion had stopped. The patient underwent a cardiac catheterization today was found to have severe 3 vessel CAD. In particular the patient was found to have an 50% distal left main lesion, tandem 70% and 95% proximal LAD lesions, an 80% proximal LCx lesion , and a long 70-80% proximal-mid RCA lesion. The patient has been recommended for CABG. FINDINGS AT OPERATION: The aorta was of normal caliber without calcification. The coronary arteries measure proximally and 0.5-2 mm in diameter and had severely calcified proximal disease and mild to moderate distal disease. The distal LAD had moderate disease. The greater saphenous vein was harvested endoscopically from the right lower extremity from the knee to the groin and was of good quality. The total bypass time was 71 minutes, cross-clamp time 37 minutes, intentional hypothermia of 34.8C. DESCRIPTION OF OPERATION: After obtaining informed operative consent from the patient, he was taken to the operative room where satisfactory general tracheal anesthetic was induced. Appropriate monitor lines placed, and the patient's chest, abdomen, and lower extremity were prepped and draped in a sterile fashion. The greater saphenous vein was harvested endoscopically from the right lower extremity from the knee to the groin and was of good quality. The subcutaneous tissue and skin edges were reapproximated running Vicryl sutures. Simultaneously a standard median sternotomy incision was made and the sternum divided. The QUINTEROS was taken down from its bed and side branches divided between hemoclips. The sternum was and the pericardium opened and reflected laterally. The patient was decannulated by placing purse string sutures the distal ascending aorta, mid-ascending aorta, and right atrial appendage. The patient was heparinized, and when the ACT was greater than 200 seconds the aorta was cannulated followed by placement of a dual stage venous annulus was placed through the right atrial appendage and into the IVC. A stab-in antegrade metabolic cannulas placed in the mid-ascending aorta. The patient was placed on bypass and the temperature allowed to drift to 34.8 C. The distal targets were identified in the aorta was crossclamped. The patient received 700 mL of cold antegrade crystalloid cardioplegia through the aortic root and the patient's heart obtained rapid diastolic arrest. The distal RCA/proximal PDA was opened with a [place] blade and the vein was anastomosed in an end-to-side fashion using a running 7-0 Prolene suture. The anastomosis was found to be hemostatic and the patient received another dose of cold antegrade crystalloid cardioplegia through the aortic root. This process was repeated for the OM1 branch. After completion of this anastomosis the patient received a final dose of cold antegrade crystalloid cardioplegia through the aortic root. The LAD was was found to have moderate calcification throughout its entire length. A soft area was opened with a [place] blade and and the QUINTEROS was anastomosed to the LAD an end-to-side fashion using a running 7-0 Prolene suture. The anastomosis was found to be hemostatic and the mammary pedicle was tacked to the epicardium using interrupted 5-0 silk suture. The aortic cross-clamp was released and the heart distended. The veins were measured and cut at appropriate lengths. A partial occluding clamp was placed across the mid-ascending aorta and the antegrade cardioplegia cannula was removed. An additional aortotomy site was then made with 11 blade Greer and both sides were largely 4 mm punch. The veins were anastomosed in an end-to-side fashion to the aorta using a running 5-0 Prolene suture. The vein grafts were closed bulldog clamp and de-aired with a 25-gauge needle prior to removing the partial occluding clamp. The proximal distal anastomoses were found to be hemostatic and the proximal anastomoses were marked with radiopaque loops. Two right ventricular temporary epicardial pacing was replaced, and 3 chest tubes were placed, 2 in the mediastinum and one into the left pleural space. During rewarming the patient's heart rhythm degenerated to ventricular fibrillation and required a single 10 J direct current shock in order to regain normal sinus rhythm. When the patient's systemic temperature 36C, he was ventilated and received volume. He was then weaned from bypass required no inotropic support. Protamine was administered and the aortic and venous cannula were removed. The pursestring sutures were secured and the venous cannulation site was reinforced the 4 Prolene suture. The pericardium was loosely approximated over the midline using interrupted 0 silk suture. The sternum was reapproximated using doubled sternal wires, and the pectoralis major fascia, shortness, rectus fascia, subcutaneous tissue, and skin edges were reapproximated using running Vicryl sutures. A negative pressure sterile dressing was placed on the sternotomy incision. The patient was transferred to the ICU in satisfactory postoperative condition. There were no intraoperative complications, and instrument, needle, and sponge count were correct at the end of operation. - Open Heart Detail BRAYAN (Internal Mammary Artery) Usage: Yes Cardiopulmonary Bypass Time (mins): 71 Aortic Cross Clamp Time (mins): 37 Intentional Hypothermia Temperature (C.): 34.8
[2016-02-29 12:16] LABS: ABG Base Excess 1.1 mEq/L (-2.0 to 3.0); ABG Oxygen Saturation 99 % (95-98); ABG PCO2 42 mmHg (35-45); ABG PO2 155 mmHg (85-104); ABG TCO2 27.3 mEq/L (20-26)
[2016-02-29 12:17] LABS: Blood Gas FiO2 50 %
[2016-02-29 12:18] LABS: Basophils % 0.3 %; Eosinophils # 0.2 K/mcL (0.0-0.6); Eosinophils % 1.1 %; Hematocrit 29.9 % (37.5-50.1); Immature Granulocytes % 0.6 % (0-4); Lymphocytes # 1.7 K/mcL (0.6-4.6); Lymphocytes % 11.8 %; Mean Corpuscular HGB Conc 35.5 g/dL (31.6-35.5); Mean Corpuscular Hemoglobin 31.6 pg (28.0-33.3); Mean Corpuscular Volume 89.3 fL (83.0-100.0); Mean Platelet Volume 8.5 fL (9.4-12.4); Monocytes # 1.3 K/mcL (0.0-1.3); Monocytes % 9.4 %; Neutrophils # 10.8 K/mcL (1.6-8.9); Platelet Count 126 K/mcL (140-400); Red Blood Count 3.35 M/mcL (4.19-5.50); Red Cell Distribution Width 14.3 % (11.5-14.5); Segmented Neutrophils % 76.8 %
[2016-02-29 12:22] LABS: Hemoglobin 10.6 g/dL (12.9-16.9)
[2016-02-29 12:30] LABS: BUN/Creatinine Ratio 15 (6-26); Blood Urea Nitrogen 16 mg/dL (8-26); Carbon Dioxide 22 mEq/L (19-29); Chloride 107 mEq/L (98-109); Glucose 141 mg/dL (70-99); Magnesium 2.4 mg/dL (1.6-2.6); Osmolality,Calculated 290 (280-300); eGFR For African Americans > 60 (> 60); eGFR For Non-African Americans > 60 (> 60)
[2016-02-29 12:32] LABS: Sodium 138 mEq/L (136-145)
[2016-02-29 12:39] LABS: INR 1.3
[2016-02-29 12:42] LABS: Activated Partial Thrombo Time 28.8 Seconds (26.0-36.0)
[2016-02-29 12:43] LABS: Prothrombin Time 14.5 Seconds (9.4-12.1)
[2016-02-29] MEDS: Metoclopramide 10 MG/2 ML VIAL IVP SCH ×3 (13:32→23:10)
[2016-02-29] MEDS: Ketorolac 15 MG/ML VIAL IVP SCH ×3 (13:32→23:11)
[2016-02-29] MEDS ORDERED: *HR* Magnesium Sulfate 2 GM/50 ML PIGGYBACK IVPB ONE (13:40)
[2016-02-29] MEDS ORDERED: Albumin Human 25% 25 GM/100 ML IV.SOLN IV ONE (13:40)
[2016-02-29] MEDS ORDERED: *HR* Heparin 10,000 UNIT/10 ML VIAL IV ONE (13:40)
[2016-02-29] MEDS ORDERED: Lidocaine 2% Syringe 100 MG/5 ML IV ONE (13:40)
[2016-02-29] MEDS ORDERED: *HR* Phenylephrine 10 MG/ML VIAL IVC ONE (13:40)
[2016-02-29] MEDS ORDERED: Sodium Bicarbonate 50 MEQ/50 ML VIAL IVC ONE (13:40)
[2016-02-29] MEDS ORDERED: Mannitol 25% vial 12.5 GM/50 ML VIAL IVP ONE (13:40)
[2016-02-29] MEDS: Pantoprazole 40 MG VIAL IVP SCH (13:52)
[2016-02-29 14:57] LABS: ABG Base Excess -1.1 mEq/L (-2.0 to 3.0); ABG Glucose 95 mg/dL (60-95); ABG HCO3 25.7 mEQ/L (21-27); ABG Hematocrit 39 % (35-51); ABG Ionized Calcium 1.09 mmol/L (1.15-1.35); ABG Oxygen Saturation 100 % (95-98); ABG PCO2 51 mmHg (35-45); ABG PH 7.31 pH Units (7.32-7.45); ABG PO2 279 mmHg (85-104); ABG TCO2 27.3 mEq/L (20-26)
[2016-02-29 14:59] LABS: ABG Base Excess -4.6 mEq/L (-2.0 to 3.0); ABG Glucose 120 mg/dL (60-95); ABG HCO3 22.4 mEQ/L (21-27); ABG Hematocrit 29 % (35-51); ABG Ionized Calcium 0.92 mmol/L (1.15-1.35); ABG Oxygen Saturation 99 % (95-98); ABG PCO2 50 mmHg (35-45); ABG PH 7.26 pH Units (7.32-7.45); ABG PO2 133 mmHg (85-104); ABG TCO2 23.9 mEq/L (20-26)
[2016-02-29 15:01] LABS: ABG Base Excess 0.9 mEq/L (-2.0 to 3.0); ABG Glucose 169 mg/dL (60-95); ABG HCO3 26.6 mEQ/L (21-27); ABG Hematocrit 26 % (35-51); ABG Ionized Calcium 0.96 mmol/L (1.15-1.35); ABG Oxygen Saturation 100 % (95-98); ABG PCO2 47 mmHg (35-45); ABG PH 7.36 pH Units (7.32-7.45); ABG PO2 452 mmHg (85-104)
[2016-02-29 15:03] LABS: ABG Base Excess 0.2 mEq/L (-2.0 to 3.0); ABG HCO3 26.4 mEQ/L (21-27); ABG PCO2 50 mmHg (35-45); ABG PH 7.33 pH Units (7.32-7.45); ABG PO2 383 mmHg (85-104); ABG TCO2 27.9 mEq/L (20-26)
[2016-02-29 15:04] LABS: ABG Glucose 135 mg/dL (60-95); ABG Hematocrit 26 % (35-51); ABG Ionized Calcium 1.02 mmol/L (1.15-1.35); ABG Oxygen Saturation 100 % (95-98)
[2016-02-29 15:06] LABS: ABG Base Excess -1.9 mEq/L (-2.0 to 3.0); ABG Glucose 96 mg/dL (60-95); ABG HCO3 23.1 mEQ/L (21-27); ABG Hematocrit 23 % (35-51); ABG Ionized Calcium 0.92 mmol/L (1.15-1.35); ABG Oxygen Saturation 97 % (95-98); ABG PCO2 39 mmHg (35-45); ABG PH 7.38 pH Units (7.32-7.45); ABG PO2 97 mmHg (85-104); ABG TCO2 24.3 mEq/L (20-26)
[2016-02-29] MEDS: *HR* Morphine 2 MG/ML SYRINGE IVP PRN ×2 (15:23→16:59)
[2016-02-29] MEDS ORDERED: ceFAZolin 3,000 MG in D5% in Water 100 ML IVPB SCH (16:00)
[2016-02-29 16:37] LABS: ABG Base Excess 1.9 mEq/L (-2.0 to 3.0); ABG HCO3 26.4 mEQ/L (21-27); ABG Oxygen Saturation 98 % (95-98); ABG PCO2 41 mmHg (35-45); ABG PO2 101 mmHg (85-104); ABG TCO2 27.9 mEq/L (20-26); Blood Gas FiO2 40 %
[2016-02-29 16:39] LABS: ABG PH 7.42 pH Units (7.32-7.45)
[2016-02-29] MEDS: *HR* OxyCODONE/APAP 5/325 TABLET PO PRN ×2 (17:21→21:18)
[2016-02-29] MEDS: Ondansetron 8 MG in 0.9 % Sodium Chloride 50 ML IVPB SCH ×2 (17:24→23:34)
[2016-02-29 17:37] LABS: ABG Base Excess 0.8 mEq/L (-2.0 to 3.0); ABG HCO3 26.6 mEQ/L (21-27); ABG Oxygen Saturation 98 % (95-98); ABG PCO2 47 mmHg (35-45); ABG PH 7.36 pH Units (7.32-7.45); ABG PO2 108 mmHg (85-104); Blood Gas FiO2 32 %
[2016-02-29] MEDS: ceFAZolin 3,000 MG in D5% in Water 100 ML IVPB SCH (19:07)
[2016-03-01 03:24] LABS: Basophils % 0.1 %; Hematocrit 30.1 % (37.5-50.1); Hemoglobin 10.4 g/dL (12.9-16.9); Immature Granulocytes % 0.4 % (0-4); Lymphocytes # 0.8 K/mcL (0.6-4.6); Lymphocytes % 9.2 %; Mean Corpuscular HGB Conc 34.6 g/dL (31.6-35.5); Mean Corpuscular Hemoglobin 31.2 pg (28.0-33.3); Mean Corpuscular Volume 90.4 fL (83.0-100.0); Mean Platelet Volume 8.4 fL (9.4-12.4); Monocytes # 1.1 K/mcL (0.0-1.3); Monocytes % 12.5 %; Neutrophils # 6.6 K/mcL (1.6-8.9); Platelet Count 122 K/mcL (140-400); Red Blood Count 3.33 M/mcL (4.19-5.50); Red Cell Distribution Width 14.5 % (11.5-14.5); Segmented Neutrophils % 77.8 %
[2016-03-01 03:30] LABS: INR 1.2; Prothrombin Time 13.5 Seconds (9.4-12.1)
[2016-03-01 03:35] LABS: Activated Partial Thrombo Time 84.6 Seconds (26.0-36.0)
[2016-03-01 03:39] LABS: BUN/Creatinine Ratio 16 (6-26); Blood Urea Nitrogen 16 mg/dL (8-26); Calcium 8.2 mg/dL (8.6-10.8); Carbon Dioxide 22 mEq/L (19-29); Chloride 108 mEq/L (98-109); Glucose 114 mg/dL (70-99); Magnesium 2.1 mg/dL (1.6-2.6); Osmolality,Calculated 288 (280-300); Potassium 4.6 mEq/L (3.5-4.5); Sodium 138 mEq/L (136-145); eGFR For African Americans > 60 (> 60); eGFR For Non-African Americans > 60 (> 60)
[2016-03-01] MEDS: *HR* Morphine 2 MG/ML SYRINGE IVP PRN (04:25)
[2016-03-01] MEDS: Ondansetron 8 MG in 0.9 % Sodium Chloride 50 ML IVPB SCH ×4 (04:54→22:08)
[2016-03-01] MEDS: ceFAZolin 3,000 MG in D5% in Water 100 ML IVPB SCH (04:58)
[2016-03-01] MEDS: Metoclopramide 10 MG/2 ML VIAL IVP SCH ×3 (05:43→17:18)
[2016-03-01] MEDS: Ketorolac 15 MG/ML VIAL IVP SCH ×3 (05:43→17:18)
[2016-03-01] MEDS: Pantoprazole 40 MG VIAL IVP SCH (07:48)
[2016-03-01] MEDS: Chlorhexidine Rinse 15 ML MOUTHWASH MM SCH ×2 (07:48→20:13)
--- NOTE | 2016-03-01 08:45 | Cardiothoracic Progress Note ---
Date of Encounter: 03/01/16 Time of Encounter: 08:37 - Assessment and plan (1) Chest pain Current Visit: Yes Status: Acute The patient is recovering well from his CABG3. He remained hemodynamically stable overnight. Currently he is extubated and breathing comfortably. The arterial line, Nicolas catheter, [place] catheter be removed. He will be transferred to the stepdown unit later today. The assessment and plan as outlined above was discussed with the patient and/or family members who expressed understanding and agreement. All questions were answered. Qualifiers: Ischemic chest pain type: unstable angina pectoris Qualified Code(s): I20.0 - Unstable angina - Subjective Procedure(s) Performed: POD#1 S/P CABG3 Interval history: The patient remained hemodynamically stable overnight. He is currently extubated and breathing comfortably. He was able to sit in a chair at the bedside last night. He has no complaints. Vital Signs, Last 4 Hours Temp Pulse Resp BP Pulse Ox 03/01/16 08:22 16 97 03/01/16 08:19 85 03/01/16 07:30 99.2 F 03/01/16 07:00 99.4 F 84 16 131/63 97 03/01/16 06:00 99.4 F 85 16 112/54 96 03/01/16 05:00 99.4 F 87 16 123/58 96 03/01/16 04:45 17 110/74 97 Oxgyen Flow Rate Oxygen Flow Rate (LPM) 3 Clinical Data, last 8 Hours Output, Chest Tube Drainage 0 Amount [#2] Output, Chest Tube Drainage 0 Amount [#2] Output, Chest Tube Drainage 0 Amount [#2] Output, Chest Tube Drainage 0 Amount [#2] Output, Chest Tube Drainage 0 Amount [#2] Output, Chest Tube Drainage 5 Amount [#2] Output, Chest Tube Drainage 0 Amount [#2] Output, Chest Tube Drainage 0 Amount [#1] Output, Chest Tube Drainage 0 Amount [#1] Output, Chest Tube Drainage 20 Amount [#1] Output, Chest Tube Drainage 0 Amount [#1] Output, Chest Tube Drainage 0 Amount [#1] Output, Chest Tube Drainage 10 Amount [#1] Output, Chest Tube Drainage 0 Amount [#1] Weight 02/28/16 02/29/16 03/01/16 23:59 23:59 23:59 Weight 117.662 kg - Physical Examination General: Conversant, No Apparent Distress Neck: No JVD, Normal carotid pulses Cardiac: Reg Rate and Rhythm, Normal S1 and S2, No Murmur Incision: No signs of infection, Dry/intact dressing Sternum: Stable Chest tubes: Minimal drainage, Other (No air leak.) Pacing Wires: In place Lungs: Normal Breath Sounds, No Wheeze, Rales, Rhonchi Neuro: Alert and responsive, No focal deficits noted Vascular: Normal capillary refill Musculoskeletal: No Chest Wall Tenderness Extremities: No Clubbing, No Cyanosis, No Edema - Labs 03/01/16 03:15 03/01/16 03:15 Lab Results, Last 24 hours 02/29/16 02/29/16 02/29/16 12:06 12:06 12:27 WBC 14.1 H D Hgb 10.6 L D Hct 29.9 L Plt Count 126 L INR 1.3 APTT 28.8 Sodium 138 Potassium 4.0 Chloride 107 Carbon Dioxide 22 BUN 16 Creatinine 1.04 Glucose 141 H Calcium 8.0 L Magnesium 2.4 03/01/16 03/01/16 03/01/16 03:15 03:15 03:15 WBC 8.4 Hgb 10.4 L Hct 30.1 L Plt Count 122 L INR 1.2 APTT 84.6 H D Sodium 138 Potassium 4.6 H Chloride 108 Carbon Dioxide 22 BUN 16 Creatinine 0.97 Glucose 114 H Calcium 8.2 L Magnesium 2.1 - Imaging Chest Xray: image reviewed (No pneumothorax. Minimal bilateral atelectasis/ infiltrates.) - VTE Reasons for not Prescribing Prophylaxis: Not indicated-Anticoagulated or INR therapeutic Documentation of Mechanical Device: Intermittent pneumatic compression device Consult Discharge Plan - Plan Referrals: Yesenia Shaw MD [Primary Care Provider] - 03/11/16 9:30 am
[2016-03-01] MEDS ORDERED: Furosemide 20 MG/2 ML VIAL IVP SCH (09:00)
[2016-03-01] MEDS: *HR* OxyCODONE/APAP 5/325 TABLET PO PRN ×2 (10:38→19:19)
[2016-03-01] MEDS ORDERED: Acetaminophen 325 MG TABLET PO PRN (11:22)
[2016-03-01] MEDS ORDERED: *HR* Morphine 2 MG/ML SYRINGE IVP PRN ×2 (11:22)
[2016-03-01] MEDS ORDERED: Naloxone 0.4 MG/ML INJ IVP PRN (11:22)
[2016-03-01] MEDS ORDERED: Insulin Regular, Human 100 UNIT/ML IV PRN (11:22)
[2016-03-01] MEDS ORDERED: D5% in Water 1,000 ML IV PRN (11:22)
[2016-03-01] MEDS ORDERED: *HR* Dextrose 50 % in Water (Syg) 50 ML SYRINGE IVP PRN (11:22)
[2016-03-01] MEDS ORDERED: Bismuth Subsalicylate 120 ML ORAL SUSPENSION PO PRN (11:22)
[2016-03-01] MEDS ORDERED: Dextrose Gel 15 GM PO PRN ×2 (11:22)
[2016-03-01] MEDS ORDERED: Nitroglycerin 0.4 MG TAB.SUBL SL PRN (11:22)
[2016-03-01] MEDS ORDERED: Artificial Tears SOLN 15 ML BOTTLE BOTH EYES PRN (11:22)
[2016-03-01] MEDS: *HR* Heparin 5,000 UNIT/ML VIAL SQ SCH ×2 (12:34→17:30)
[2016-03-01] MEDS: Insulin LISPRO 300 UNITS/3 ML VIAL SQ SCH ×3 (12:45→22:07)
[2016-03-01] MEDS: Furosemide 20 MG/2 ML VIAL IVP SCH (17:18)
[2016-03-01] MEDS: Insulin Human Regular 100 UNIT in 0.9 % Sodium Chloride 100 ML IV SCH (17:19)
[2016-03-01] MEDS ORDERED: *HR* LORazepam 2 MG/ML VIAL IVP PRN (20:34)
[2016-03-02] MEDS: Ketorolac 15 MG/ML VIAL IVP SCH ×4 (00:06→16:52)
[2016-03-02] MEDS: Metoclopramide 10 MG/2 ML VIAL IVP SCH ×4 (00:06→16:52)
[2016-03-02 04:23] LABS: Hematocrit 29.7 % (37.5-50.1); Hemoglobin 10.3 g/dL (12.9-16.9); Mean Corpuscular HGB Conc 34.7 g/dL (31.6-35.5); Mean Corpuscular Hemoglobin 31.9 pg (28.0-33.3); Mean Platelet Volume 8.9 fL (9.4-12.4); Platelet Count 142 K/mcL (140-400); Red Blood Count 3.23 M/mcL (4.19-5.50); Red Cell Distribution Width 14.7 % (11.5-14.5)
[2016-03-02 04:50] LABS: BUN/Creatinine Ratio 20 (6-26); Blood Urea Nitrogen 25 mg/dL (8-26); Calcium 8.3 mg/dL (8.6-10.8); Carbon Dioxide 23 mEq/L (19-29); Chloride 106 mEq/L (98-109); Glucose 113 mg/dL (70-99); Osmolality,Calculated 287 (280-300); Potassium 4.7 mEq/L (3.5-4.5); Sodium 136 mEq/L (136-145); eGFR For African Americans > 60 (> 60); eGFR For Non-African Americans 59 (> 60)
[2016-03-02] MEDS: Ondansetron 8 MG in 0.9 % Sodium Chloride 50 ML IVPB SCH ×4 (05:00→21:36)
[2016-03-02] MEDS: *HR* Heparin 5,000 UNIT/ML VIAL SQ SCH ×2 (05:13→16:52)
[2016-03-02] MEDS: Insulin LISPRO 300 UNITS/3 ML VIAL SQ SCH ×4 (08:00→21:26)
[2016-03-02] MEDS: *HR* OxyCODONE/APAP 5/325 TABLET PO PRN ×2 (08:07→21:47)
[2016-03-02] MEDS: Furosemide 20 MG/2 ML VIAL IVP SCH ×2 (08:08→16:00)
[2016-03-02] MEDS: Pantoprazole 40 MG VIAL IVP SCH (08:08)
[2016-03-02] MEDS: Aspirin Enteric Coated 81 MG Tablet PO SCH (08:08)
[2016-03-02] MEDS: Chlorhexidine Rinse 15 ML MOUTHWASH MM SCH ×2 (08:08→21:36)
--- NOTE | 2016-03-02 08:40 | Cardiothoracic Progress Note ---
Date of Encounter: 03/02/16 Time of Encounter: 08:38 - Assessment and plan (1) Chest pain Current Visit: Yes Status: Acute The patient is recovering well from his CABG3. The chest tube removed. He will begin ambulating in the hallways today. The assessment and plan as outlined above was discussed with the patient and/or family members who expressed understanding and agreement. All questions were answered. Qualifiers: Ischemic chest pain type: unstable angina pectoris Qualified Code(s): I20.0 - Unstable angina - Subjective Procedure(s) Performed: POD#2 S/P CABG3 Interval history: The patient is resting comfortably in his hospital bed. He was able to sit in a chair most of yesterday without difficulty. Last evening he had a "panic attack " which resolved after taking Ativan. He had a repeat episode this morning which has now resolved. Vital Signs, Last 4 Hours Temp Pulse Resp BP Pulse Ox 03/02/16 08:14 94 03/02/16 07:51 18 95 03/02/16 07:01 98.2 F 85 18 113/69 95 03/02/16 04:45 89 03/02/16 04:40 98.5 F 90 18 109/57 94 L Oxgyen Flow Rate Oxygen Flow Rate (LPM) 2 Clinical Data, last 8 Hours Output, Chest Tube Drainage 0 Amount [#2] Output, Chest Tube Drainage 60 Amount [#1] Output, Urine Amount 200 Weight 02/29/16 03/01/16 03/02/16 23:59 23:59 23:59 Weight 117.662 kg 120.5 kg - Physical Examination General: Conversant, No Apparent Distress Neck: No JVD, Normal carotid pulses Cardiac: Reg Rate and Rhythm, Normal S1 and S2, No Murmur Incision: No signs of infection, Dry/intact dressing Sternum: Stable Chest tubes: Minimal drainage, Other (No air leak.) Pacing Wires: In place Lungs: Normal Breath Sounds, No Wheeze, Rales, Rhonchi Neuro: Alert and responsive, No focal deficits noted Vascular: Normal capillary refill Musculoskeletal: No Chest Wall Tenderness Extremities: No Clubbing, No Cyanosis, No Edema - Labs 03/02/16 04:00 03/02/16 04:00 Lab Results, Last 24 hours 03/02/16 03/02/16 04:00 04:00 WBC 7.8 Hgb 10.3 L Hct 29.7 L Plt Count 142 Sodium 136 Potassium 4.7 H Chloride 106 Carbon Dioxide 23 BUN 25 Creatinine 1.24 Glucose 113 H Calcium 8.3 L - VTE Reasons for not Prescribing Prophylaxis: Not indicated-Anticoagulated or INR therapeutic Documentation of Mechanical Device: Graduated compression elastic hosiery Consult Discharge Plan - Plan Referrals: Yesenia Shaw MD [Primary Care Provider] - 03/11/16 9:30 am
[2016-03-02] MEDS: Insulin Human Regular 100 UNIT in 0.9 % Sodium Chloride 100 ML IV SCH (10:22)
--- NOTE | 2016-03-02 19:57 | Electrocardiograph Report ---
[facility] Test Date: 2016-03-01 Pat Name: MECHELLE Enciso Department: 109 Room: 2N01 Gender: M Fraud Manager: [facility] : 1950 Requested By: Kaylene Bacon Order Number: [id number] Reading MD: Ja Knox DO Measurements Intervals [place] Rate: 78 P: 79 SD: 173 QRS: 5 QRSD: 88 T: 8 QT: 355 QTc: 388 Interpretive Statements SINUS RHYTHM POSSIBLE INFERIOR MYOCARDIAL INFARCTION, INDETERMINATE AGE Electronically Signed On 03-02-16 19:56:43 EST by Ja Knox DO
[2016-03-03] MEDS: Ketorolac 15 MG/ML VIAL IVP SCH ×5 (00:20→23:32)
[2016-03-03] MEDS: Metoclopramide 10 MG/2 ML VIAL IVP SCH ×3 (00:20→11:22)
[2016-03-03] MEDS: Ondansetron 8 MG in 0.9 % Sodium Chloride 50 ML IVPB SCH ×3 (04:57→21:00)
[2016-03-03] MEDS: *HR* Heparin 5,000 UNIT/ML VIAL SQ SCH ×2 (05:47→19:07)
[2016-03-03] MEDS: Insulin LISPRO 300 UNITS/3 ML VIAL SQ SCH ×4 (07:33→21:02)
[2016-03-03] MEDS: Pantoprazole 40 MG VIAL IVP SCH (07:37)
[2016-03-03] MEDS: Chlorhexidine Rinse 15 ML MOUTHWASH MM SCH ×2 (07:37→21:01)
[2016-03-03] MEDS: Aspirin Enteric Coated 81 MG Tablet PO SCH (07:37)
--- NOTE | 2016-03-03 07:37 | Cardiothoracic Progress Note ---
Date of Encounter: 03/03/16 Time of Encounter: 07:35 - Assessment and plan (1) Chest pain Current Visit: Yes Status: Acute The patient is recovering well from his CABG3. He is ambulating in the hallways without difficulty. The assessment and plan as outlined above was discussed with the patient and/or family members who expressed understanding and agreement. All questions were answered. Qualifiers: Ischemic chest pain type: unstable angina pectoris Qualified Code(s): I20.0 - Unstable angina - Subjective Procedure(s) Performed: POD#3 S/P CABG3 Interval history: The patient is sitting in a chair at the bedside. He was able to ambulate in the hallways without difficulty. Vital Signs, Last 4 Hours Temp Pulse Resp BP Pulse Ox 03/03/16 07:10 97.8 F 89 18 115/66 91 L 03/03/16 04:40 97.7 F 82 17 113/59 97 03/03/16 04:20 81 Oxgyen Flow Rate Oxygen Flow Rate (LPM) 1 Clinical Data, last 8 Hours Output, Urine Amount 400 Output, Urine Amount 25 Output, Urine Amount 250 Weight 03/01/16 03/02/16 03/03/16 23:59 23:59 23:59 Weight 120.5 kg 119.5 kg - Physical Examination General: Conversant, No Apparent Distress Neck: No JVD, Normal carotid pulses Incision: No signs of infection, Dry/intact dressing Sternum: Stable Pacing Wires: In place Lungs: Normal Breath Sounds, No Wheeze, Rales, Rhonchi Neuro: Alert and responsive, No focal deficits noted Vascular: Normal capillary refill Skin: No rashes noted on visualized skin Extremities: No Clubbing, No Cyanosis, No Edema - Labs 03/02/16 04:00 03/02/16 04:00 - VTE Reasons for not Prescribing Prophylaxis: Not indicated-Anticoagulated or INR therapeutic Documentation of Mechanical Device: Graduated compression elastic hosiery Consult Discharge Plan - Plan Referrals: Yesenia Shaw MD [Primary Care Provider] - 03/11/16 9:30 am
[2016-03-03] MEDS: Furosemide 20 MG/2 ML VIAL IVP SCH ×2 (07:38→16:25)
--- NOTE | 2016-03-03 09:23 | Electrocardiograph Report ---
[facility] Test Date: 2016-02-29 Pat Name: Luis Alberto Enciso Department: 109 Room: 2N01 Gender: M Network Technical Analyst: DAMIR : 1950 Requested By: Kaylene Bacon Order Number: [id number] Reading MD: Ja Knox DO Measurements Intervals [place] Rate: 71 P: -19 NV: 187 QRS: 13 QRSD: 109 T: 58 QT: 405 QTc: 427 Interpretive Statements Sinus rhythm Nonspecific ST-T changes Electronically Signed On 03-03-16 09:22:17 EST by Ja Knox DO
[2016-03-03] MEDS ORDERED: Ondansetron 4 MG/2 ML VIAL IVP PRN (09:58)
[2016-03-04] MEDS: Ondansetron 8 MG in 0.9 % Sodium Chloride 50 ML IVPB SCH (02:34)
[2016-03-04] MEDS: Ketorolac 15 MG/ML VIAL IVP SCH ×4 (05:00→23:20)
--- NOTE | 2016-03-04 05:26 | Cardiothoracic Progress Note ---
Date of Encounter: 03/04/16 Time of Encounter: 05:25 - Assessment and plan (1) Chest pain Current Visit: Yes Status: Acute The patient is recovering well from his CABG3. He is ambulating in the hallways without difficulty. The patient will be discharged home in 1-2 days. The assessment and plan as outlined above was discussed with the patient and/or family members who expressed understanding and agreement. All questions were answered. Qualifiers: Ischemic chest pain type: unstable angina pectoris Qualified Code(s): I20.0 - Unstable angina - Subjective Procedure(s) Performed: POD#4 S/P CABG3 Interval history: The patient is asking comfortably in his hospital bed. He was able to ambulate in the hallways yesterday without difficulty. Vital Signs, Last 4 Hours Temp Pulse Resp BP Pulse Ox 03/04/16 05:00 90 03/04/16 04:42 97.8 F 86 25 113/67 95 Oxgyen Flow Rate Oxygen Flow Rate (LPM) 1 Clinical Data, last 8 Hours Output, Urine Amount 105 Output, Urine Amount 50 Weight 03/02/16 03/03/16 03/04/16 23:59 23:59 23:59 Weight 120.5 kg 119.5 kg 120.4 kg - Physical Examination General: Conversant, No Apparent Distress Neck: No JVD, Normal carotid pulses Cardiac: Reg Rate and Rhythm, Normal S1 and S2, No Murmur Incision: No signs of infection, Dry/intact dressing Pacing Wires: In place Lungs: Normal Breath Sounds, No Wheeze, Rales, Rhonchi Neuro: Alert and responsive, No focal deficits noted Vascular: Normal capillary refill Musculoskeletal: No Chest Wall Tenderness Extremities: No Clubbing, No Cyanosis, No Edema - Labs 03/02/16 04:00 03/02/16 04:00 - VTE Reasons for not Prescribing Prophylaxis: Not indicated-Anticoagulated or INR therapeutic Documentation of Mechanical Device: Graduated compression elastic hosiery Consult Discharge Plan - Plan Referrals: Yesenia Shaw MD [Primary Care Provider] - 03/11/16 9:30 am Kaylene Bacon MD [Partnered Physician] - 04/03/16 1:00 pm Aroldo Fleming MD [Partnered Physician] - 03/18/16 10:30 am
[2016-03-04] MEDS: *HR* Heparin 5,000 UNIT/ML VIAL SQ SCH ×2 (06:21→19:26)
[2016-03-04] MEDS: Pantoprazole 40 MG VIAL IVP SCH (09:00)
[2016-03-04] MEDS: Aspirin Enteric Coated 81 MG Tablet PO SCH (09:00)
[2016-03-04] MEDS: Furosemide 20 MG/2 ML VIAL IVP SCH (09:00)
[2016-03-04] MEDS: Chlorhexidine Rinse 15 ML MOUTHWASH MM SCH ×2 (09:01→20:24)
[2016-03-04] MEDS: Insulin LISPRO 300 UNITS/3 ML VIAL SQ SCH ×4 (09:02→20:24)
[2016-03-04] MEDS ORDERED: Ondansetron 4 MG/2 ML VIAL IVP PRN (09:35)
[2016-03-05 04:17] VITALS: BP 114/69
[2016-03-05] MEDS: *HR* Heparin 5,000 UNIT/ML VIAL SQ SCH (06:05)
[2016-03-05] MEDS: Ketorolac 15 MG/ML VIAL IVP SCH (06:05)
[2016-03-05] MEDS: Chlorhexidine Rinse 15 ML MOUTHWASH MM SCH (08:54)
[2016-03-05] MEDS: Aspirin Enteric Coated 81 MG Tablet PO SCH (08:54)
[2016-03-05] MEDS: Insulin LISPRO 300 UNITS/3 ML VIAL SQ SCH ×2 (08:55→11:38)
--- NOTE | 2016-03-05 09:02 | Discharge Summary ---
Date of Encounter: 03/05/16 Time of Encounter: 09:00 - Discharge Diagnosis (1) Chest pain Priority: Primary Status: Acute Qualifiers: Ischemic chest pain type: unstable angina pectoris Qualified Code(s): I20.0 - Unstable angina - Discharge Medications Prescriptions: OxyCODONE/APAP 5/325 [Percocet 5/325 MG] 1 each PO Q4HR PRN #50 tablet PRN Reason: Severe Pain Nitroglycerin 0.4 mg SL Q5MIN PRN #20 tab.subl PRN Reason: Chest Pain Atorvastatin [Lipitor] 40 mg PO HS #30 tablet Lisinopril [Zestril] 10 mg PO DAILY #30 tablet Metoprolol [Lopressor] 25 mg PO BID #60 tablet Home Medications: Bismuth Subsalicylate [PEPTO-BISMOL (262mg/15mL) Susp] 30 ml PO QID PRN [History] Potassium Gluconate 90 mg PO DAILY 02/27/16 [History] Tadalafil [Cialis] 20 mg PO DAILY PRN 02/27/16 [History] Aspirin Enteric Coated [Aspirin EC] 81 mg PO DAILY tablet. 03/05/16 [Rx] Atorvastatin [Lipitor] 40 mg PO HS #30 tablet 03/05/16 [Rx] Lisinopril [Zestril] 10 mg PO DAILY #30 tablet 03/05/16 [Rx] Metoprolol [Lopressor] 25 mg PO BID #60 tablet 03/05/16 [Rx] Nitroglycerin 0.4 mg SL Q5MIN PRN #20 tab.subl 03/05/16 [Rx] OxyCODONE/APAP 5/325 [Percocet 5/325 MG] 1 each PO Q4HR PRN #50 tablet 03/05/16 [Rx] Allergies/Adverse Reactions: Allergies No Known Drug Allergies Allergy (Unknown, Verified 02/27/16 10:07) See Comments Date of admission: 02/29/16 11:51 Primary care physician: Yesenia Shaw Consults: 02/28/16 13:35 Consult to Cardiothoracic Surgery [CONS] Routine Consulting Provider: Cardiothoracic Surgery [facility] Reason for Consult: cabg Call Completed: Yes 02/29/16 11:18 Consult to Cardiac Rehabilitation-Phase1 [CONS] Routine Comment: Reason for Consult: Post open heart Call Completed: Yes 03/03/16 10:05 Consult to Occupational Therapy [CONS] Routine Comment: Evaluate, develop and implement POC S/P CABG Consult to Physical Therapy [CONS] Routine Comment: Evaluate, develop and implement POC S/P CABG Consult to Programming Manager [CONS] Routine Reason for SW Consult: S/P CABG Procedure(s) Performed: 1. CABG3 (QUINTEROS to LAD, SVG to OM1, SVG to PDA) performed February 29, 2016. 2. Endoscopic vein harvesting, greater saphenous vein from right lower extremity performed February 29, 2016. Discharging clinician: Kaylene Bacon Anticipated date of discharge: 03/05/16 - Patient Status Disposition: Home, Self-Care Condition: Good Functional capacity at discharge: independent ambulation Overall status at discharge: patient is progressing back to baseline - Discharge Instructions Follow Up With: Yesenia Shaw MD [Primary Care Provider] - 03/11/16 9:30 am Kaylene Bacon MD [Partnered Physician] - 04/03/16 1:00 pm Aroldo Fleming MD [Partnered Physician] - 03/18/16 10:30 am - Diet and Activity Activity: sternal precautions, no driving for four weeks, no lifting greater than 10 pounds for eight weeks Diet: low fat, low cholesterol - Hospital Course Hospital course: Mr. Enciso is a 65 year old moderately obese, but otherwise healthy man was experienced exertional substernal chest pain radiating to his left arm during the last 6-12 months. Initially, the patient states that he would have vague substernal chest discomfort and did not require him to stop his activity. Approximately 6 months ago; however, he began having more frequent and severe substernal chest pain with activity. The pain would radiate was left shoulder and be associated with shortness of breath and dyspnea on exertion. He would stop his activity and the pain would resolve within 2-3 minutes. More recently, the pain has required at least 10-15 minutes of rest in order to resolve. He has also experienced increasing fatigue, and states that he is sleeping more hours each day. He mentioned the symptoms to his primary care physician who referred him for a cardiac workup. The patient underwent an outpatient exercise stress test which was markedly abnormal. Within 2-3 minutes the patient had markedly ST segment depression and the test was terminated. At the end of the test the patient also experienced lightheadedness which he had not had before. The ECG changes and his symptoms persisted for at least 15 minutes after the exercise portion had stopped. The patient underwent a cardiac catheterization today was found to have severe 3 vessel CAD and LVEF 55%. In particular the patient was found to have an 50% distal left main lesion, tandem 70% and 95% proximal LAD lesions, an 80% proximal LCx lesion, and a long 70-80% proximal-mid RCA lesion. The patient has been recommended for CABG. The patient underwent CABG 3 on February 29, 2016. He was transferred to the ICU postoperatively where he remained hemodynamic was stable. The patient was extubated and transferred to the stepdown unit on POD #1. Chest tubes were removed on POD #2. He was ambulating without complaints of substernal chest pain or shortness of breath. He was discharged home on POD #5. - Time Spent with Patient Total time spent providing and/or coordinating discharge services: Physical Examination Vital Signs, Last 4 Hours Pulse 03/05/16 07:34 80 General: Conversant, No Apparent Distress Neck: No JVD, Normal carotid pulses Cardiac: Reg Rate and Rhythm, Normal S1 and S2, No Murmur Lungs: Normal Breath Sounds, No Wheeze, Rales, Rhonchi Neuro: Alert and responsive, No focal deficits noted Vascular: Normal capillary refill Extremities: No Clubbing, No Cyanosis, No Edema Open Heart Registry Aspirin Cont/Prescribed at DC: Yes Beta Azra Cont/Prescribed at DC: Yes Statin Cont/Prescribed at DC: Yes LYNSEY/ARB Cont/Prescribed at DC: Yes - VTE Reasons for not Prescribing Prophylaxis: Not indicated-Anticoagulated or INR therapeutic Documentation of Mechanical Device: Graduated compression elastic hosiery
[2016-03-05] MEDS: Pantoprazole 40 MG VIAL IVP SCH (09:45)
== END 2016-03-05 12:00 | disposition home or self-care (01) | DRG 166 ==
LOC: 2ANU → ICNU 02-29 09:59 → 2NNU 03-01 15:42
PROVIDERS: ADMIT Thoracic Surgery (Cardiothoracic Vascular Surgery); ATTEND Thoracic Surgery (Cardiothoracic Vascular Surgery)

== ENCOUNTER 2018-12-29 09:01 | Observation (INO) ==
[2018-12-29] MEDS ORDERED: *HR* LORazepam 2 MG/ML VIAL IVP ONE (09:36)
[2018-12-29] MEDS ORDERED: Ondansetron 4 MG/2 ML VIAL IVP ONE (09:36)
[2018-12-29 09:44] LABS: Eosinophils # 0.1 K/mcL (0.0-0.6); Hematocrit 32.8 % (37.5-50.1); Hemoglobin 11.9 g/dL (12.9-16.9); Mean Corpuscular HGB Conc 36.3 g/dL (31.6-35.5); Mean Corpuscular Hemoglobin 31.8 pg (28.0-33.3); Mean Corpuscular Volume 87.7 fL (83.0-100.0); Platelet Count 151 K/mcL (140-400); Red Blood Count 3.74 M/mcL (4.19-5.50); Red Cell Distribution Width 14.6 % (11.5-14.5); White Blood Count 3.1 K/mcL (4.3-11.1)
[2018-12-29 10:07] LABS: INR 1.1; Prothrombin Time 12.4 Seconds (9.4-12.1)
[2018-12-29 10:10] LABS: Alanine Aminotransferase 39 Units/L (7-52); Albumin 4.1 g/dL (3.5-5.7); Albumin/Globulin Ratio 1.4 (1.1-2.2); Alkaline Phosphatase 58 Units/L (34-104); Aspartate Amino Transferase 41 Units/L (13-39); BUN/Creatinine Ratio 22 (6-26); Bilirubin,Direct 0.9 mg/dL (0.0-0.2); Bilirubin,Indirect 9.6 mg/dL (0.0-1.0); Bilirubin,Total 10.5 mg/dL (0.3-1.0); Blood Urea Nitrogen 28 mg/dL (8-23); Calcium 9.3 mg/dL (8.6-10.3); Carbon Dioxide 24 mEq/L (23-29); Chloride 101 mEq/L (98-107); Glucose 146 mg/dL (70-105); Lipase 7 Units/L (11-82); Osmolality,Calculated 282 (280-300); Sodium 132 mEq/L (136-145); Total Protein 7.1 g/dL (6.4-8.9); eGFR For African Americans > 60 (> 60); eGFR For Non-African Americans 55 (> 60)
[2018-12-29 10:23] LABS: Lymphocytes # 0.7 K/mcL (0.6-4.6); Monocytes # 0.4 K/mcL (0.0-1.3); Neutrophils # 1.9 K/mcL (1.6-8.9)
[2018-12-29 10:24] LABS: Anisocytosis 1+ (Not Present); Platelet Estimate Normal (Normal); Polychromasia 1+ (Not Present)
[2018-12-29 10:39] LABS: Hepatitis B Surface Antigen Nonreactive (Nonreactive)
[2018-12-29 10:45] LABS: Bilirubin,Urine Small (Negative); Blood,Urine Negative (Negative); Clarity,Urine Clear (Clear); Color,Urine Orange (Yellow); Glucose,Urine (UA) Normal (Normal); Ketones,Urine Negative (Negative); Leukocyte Esterase,Urine Small (Negative); Nitrite,Urine Positive (Negative); PH,Urine 5.5 pH Units (5.0-8.0); Protein,Urine Trace mg/dL (Neg-Trace); Specific Gravity,Urine 1.026 (1.010-1.025); Urobilinogen,Urine Normal (Normal)
[2018-12-29 10:48] LABS: Bacteria,Urine None Seen per hpf (None-Few); Hyaline Casts,Urine None Seen per lpf (None-Few); RBC,Urine 0-3 per hpf (0-3); Squamous Epithelial Cell,Urine Moderate per lpf (None-Few); WBC,Urine 0-3 per hpf (0-3)
[2018-12-29] MEDS ORDERED: Ampicillin/Sulbactam 3,000 MG in 0.9 % Sodium Chloride Mini Bag 100 ML IVPB ONE (10:57)
[2018-12-29 11:08] LABS: Hepatitis C Virus Antibody Nonreactive (Nonreactive)
[2018-12-29 11:09] LABS: Hepatitis A Antibody IgM Nonreactive (Nonreactive); Hepatitis B Core IgM Nonreactive (Nonreactive)
[2018-12-29] MEDS ORDERED: Ondansetron 4 MG/2 ML VIAL IVP PRN (12:28)
[2018-12-29] MEDS ORDERED: Naloxone 0.4 MG/ML INJ IVP PRN (12:28)
[2018-12-29] MEDS ORDERED: Nitroglycerin 0.4 MG TAB.SUBL SL PRN (12:31)
[2018-12-29] MEDS ORDERED: *HR* Dextrose 50 % in Water (Syg) 50 ML SYRINGE IVP PRN (12:33)
[2018-12-29] MEDS ORDERED: Dextrose Gel 15 GM/37.5 ML TUBE PO PRN ×2 (12:33)
[2018-12-29] MEDS ORDERED: D5% in Water 1,000 ML IVC PRN (12:33)
[2018-12-29] MEDS: Insulin LISPRO 300 UNITS/3 ML VIAL SQ SCH (20:10)
[2018-12-29] MEDS: Ampicillin/Sulbactam 3,000 MG in 0.9 % Sodium Chloride 100 ML IVPB SCH (23:00)
[2018-12-30 05:02] LABS: Alanine Aminotransferase 34 Units/L (7-52); Albumin 3.5 g/dL (3.5-5.7); Albumin/Globulin Ratio 1.3 (1.1-2.2); Alkaline Phosphatase 55 Units/L (34-104); Aspartate Amino Transferase 35 Units/L (13-39); BUN/Creatinine Ratio 21 (6-26); Bilirubin,Total 7.3 mg/dL (0.3-1.0); Blood Urea Nitrogen 25 mg/dL (8-23); Calcium 8.5 mg/dL (8.6-10.3); Carbon Dioxide 27 mEq/L (23-29); Chloride 103 mEq/L (98-107); Globulin 2.8 g/dL (2.4-3.5); Glucose 119 mg/dL (70-105); Osmolality,Calculated 288 (280-300); Sodium 136 mEq/L (136-145); Total Protein 6.3 g/dL (6.4-8.9); eGFR For African Americans > 60 (> 60); eGFR For Non-African Americans > 60 (> 60)
[2018-12-30] MEDS: Ampicillin/Sulbactam 3,000 MG in 0.9 % Sodium Chloride 100 ML IVPB SCH ×3 (05:11→19:35)
[2018-12-30] MEDS ORDERED: Nitroglycerin 0.4 MG TAB.SUBL SL PRN ×2 (07:58→18:07)
[2018-12-30] MEDS ORDERED: Aspirin Enteric Coated 81 MG Tablet PO SCH (09:00)
[2018-12-30] MEDS ORDERED: Aspirin 81 MG TAB.CHEW PO SCH (09:00)
[2018-12-30] MEDS: Insulin LISPRO 300 UNITS/3 ML VIAL SQ SCH ×3 (09:10→19:35)
[2018-12-30] MEDS ORDERED: Bupivacaine/EPI 1:200k 0.5%PF 30 ML VIAL ONE (14:42)
[2018-12-30] MEDS ORDERED: Isovue-300 50ML VIAL ONE (14:42)
[2018-12-30] MEDS ORDERED: *HR* FentaNYL (PF) 100 MCG/2 ML VIAL ONE (14:46)
[2018-12-30] MEDS ORDERED: *HR* Rocuronium Bromide 50 MG/5 ML VIAL ONE ×2 (14:46→16:35)
[2018-12-30] MEDS ORDERED: *HR* Propofol 200 MG/20 ML VIAL IVP ONE (14:46)
[2018-12-30] MEDS ORDERED: *HR* Succinylcholine 200 MG/10 ML VIAL IVP ONE (14:46)
[2018-12-30] MEDS ORDERED: Lidocaine -MPF 2% 2 ML VIAL ONE (14:49)
[2018-12-30 15:00] LABS: Basophils % 0.8 %; Eosinophils # 0.2 K/mcL (0.0-0.6); Eosinophils % 6.5 %; Hematocrit 33.1 % (37.5-50.1); Hemoglobin 11.8 g/dL (12.9-16.9); Immature Granulocytes % 1.1 % (0-4); Lymphocytes # 0.9 K/mcL (0.6-4.6); Lymphocytes % 23.5 %; Mean Corpuscular HGB Conc 35.6 g/dL (31.6-35.5); Mean Corpuscular Hemoglobin 31.7 pg (28.0-33.3); Mean Platelet Volume 8.8 fL (9.4-12.4); Monocytes # 0.6 K/mcL (0.0-1.3); Monocytes % 16.5 %; Neutrophils # 1.9 K/mcL (1.6-8.9); Platelet Count 182 K/mcL (140-400); Red Blood Count 3.72 M/mcL (4.19-5.50); Segmented Neutrophils % 51.6 %; White Blood Count 3.7 K/mcL (4.3-11.1)
[2018-12-30] MEDS ORDERED: Scopolamine Patch 1.5 MG PATCH.TD72 TD ONE (15:17)
[2018-12-30] MEDS ORDERED: *HR* OxyCODONE Immed Rel 5 MG TABLET PO PRN (15:17)
[2018-12-30] MEDS ORDERED: *HR* HYDROmorphone 2 MG/ML SYRINGE IVP PRN (15:17)
[2018-12-30] MEDS ORDERED: *HR* Promethazine 25 MG/ML VIAL IVP PRN (15:17)
[2018-12-30] MEDS ORDERED: *HR* Labetalol 20 MG/4 ML SYRINGE IVP PRN (15:17)
[2018-12-30] MEDS ORDERED: Acetaminophen IV 1,000 MG/100 ML INFUS..BTL ONE (15:24)
[2018-12-30 15:35] LABS: % Iron Saturation 46 % (20-55); Ferritin 1089 ng/mL (20-250); Iron 136 mcg/dL (65-175); Transferrin 211 mg/dL (203-362)
[2018-12-30 15:38] LABS: Folate 6.7 ng/mL (3.0-16.0)
[2018-12-30] MEDS ORDERED: Ondansetron 4 MG/2 ML VIAL ONE (15:50)
[2018-12-30] MEDS ORDERED: Dexamethasone 4 MG/ML VIAL ONE (15:50)
[2018-12-30] MEDS ORDERED: *HR* PHENYLEPHRINE 1,000 MCG/10 ML SYRINGE IVP ONE (15:50)
[2018-12-30] MEDS ORDERED: *HR* HYDROMORPHONE 2 MG/ML VIAL ONE (16:16)
[2018-12-30] MEDS ORDERED: Neostigmine Methylsulfate 3 MG/3 ML SYRINGE ONE (16:40)
[2018-12-30] MEDS ORDERED: Dextrose Gel 15 GM/37.5 ML TUBE PO PRN ×2 (18:07)
[2018-12-30] MEDS ORDERED: D5% in Water 1,000 ML IVC PRN (18:07)
[2018-12-30] MEDS ORDERED: *HR* OxyCODONE/APAP 5/325 TABLET PO PRN (18:07)
[2018-12-30] MEDS ORDERED: *HR* Dextrose 50 % in Water (Syg) 50 ML SYRINGE IVP PRN (18:07)
[2018-12-30] MEDS ORDERED: Naloxone 0.4 MG/ML INJ IVP PRN (18:07)
[2018-12-30] MEDS ORDERED: Ondansetron 4 MG/2 ML VIAL IVP PRN (18:07)
[2018-12-30] MEDS: Ketorolac 15 MG/ML VIAL IVP SCH (19:50)
[2018-12-31] MEDS: Ketorolac 15 MG/ML VIAL IVP SCH ×2 (00:26→06:05)
[2018-12-31] MEDS: Ampicillin/Sulbactam 3,000 MG in 0.9 % Sodium Chloride 100 ML IVPB SCH ×2 (00:27→06:05)
[2018-12-31 06:36] LABS: Basophils % 0.2 %; Hematocrit 29.6 % (37.5-50.1); Immature Granulocytes % 1.4 % (0-4); Lymphocytes # 0.5 K/mcL (0.6-4.6); Mean Corpuscular HGB Conc 33.8 g/dL (31.6-35.5); Mean Corpuscular Hemoglobin 31.3 pg (28.0-33.3); Mean Corpuscular Volume 92.8 fL (83.0-100.0); Monocytes # 0.4 K/mcL (0.0-1.3); Monocytes % 8.6 %; Neutrophils # 3.9 K/mcL (1.6-8.9); Platelet Count 165 K/mcL (140-400); Red Blood Count 3.19 M/mcL (4.19-5.50); Segmented Neutrophils % 79.8 %; White Blood Count 4.9 K/mcL (4.3-11.1)
[2018-12-31 06:57] LABS: Alanine Aminotransferase 67 Units/L (7-52); Albumin 3.5 g/dL (3.5-5.7); Albumin/Globulin Ratio 1.3 (1.1-2.2); Alkaline Phosphatase 51 Units/L (34-104); Aspartate Amino Transferase 68 Units/L (13-39); BUN/Creatinine Ratio 23 (6-26); Bilirubin,Total 4.3 mg/dL (0.3-1.0); Blood Urea Nitrogen 24 mg/dL (8-23); Calcium 8.5 mg/dL (8.6-10.3); Carbon Dioxide 26 mEq/L (23-29); Chloride 102 mEq/L (98-107); Globulin 2.6 g/dL (2.4-3.5); Glucose 170 mg/dL (70-105); Osmolality,Calculated 290 (280-300); Potassium 4.5 mEq/L (3.5-5.1); Sodium 136 mEq/L (136-145); Total Protein 6.1 g/dL (6.4-8.9); eGFR For African Americans > 60 (> 60); eGFR For Non-African Americans > 60 (> 60)
[2018-12-31] MEDS ORDERED: Insulin LISPRO 300 UNITS/3 ML VIAL SQ SCH (07:30)
[2018-12-31 08:00] VITALS: BP 108/67
[2018-12-31] MEDS ORDERED: Aspirin Enteric Coated 81 MG Tablet PO SCH (09:00)
== END 2018-12-31 10:55 | disposition home or self-care (01) ==
LOC: EMEROOARM 09:01 → 3NENU 09:01 → SUATTDRO 11:33 → 3NENU 12:37
PROVIDERS: ADMIT Family Medicine; ATTEND Internal Medicine

== ENCOUNTER 2019-06-17 19:42 | Inpatient (IN) ==
[2019-06-17] MEDS ORDERED: *HR* FentaNYL (PF) 100 MCG/2 ML VIAL IVP ONE (20:13)
[2019-06-17] MEDS ORDERED: Isovue-370 500 ML BOTTLE IVP ONE ×2 (20:14→20:53)
[2019-06-17 20:38] LABS: Bilirubin,Urine Negative (Negative); Blood,Urine Negative (Negative); Clarity,Urine Clear (Clear); Color,Urine Yellow (Yellow); Glucose,Urine (UA) Normal (Normal); Ketones,Urine Negative (Negative); Leukocyte Esterase,Urine Negative (Negative); Nitrite,Urine Negative (Negative); PH,Urine 5.5 pH Units (5.0-8.0); Protein,Urine Negative (Neg-Trace); Urobilinogen,Urine Normal (Normal)
[2019-06-17 20:59] LABS: Basophils % 0.7 %; Eosinophils # 0.3 K/mcL (0.0-0.6); Eosinophils % 7.2 %; Hematocrit 36.5 % (37.5-50.1); Hemoglobin 12.3 g/dL (12.9-16.9); Immature Granulocytes % 0.2 % (0-4); Lymphocytes % 24.4 %; Mean Corpuscular HGB Conc 33.7 g/dL (31.6-35.5); Mean Corpuscular Hemoglobin 31.5 pg (28.0-33.3); Mean Corpuscular Volume 93.6 fL (83.0-100.0); Mean Platelet Volume 9.1 fL (9.4-12.4); Monocytes # 0.5 K/mcL (0.0-1.3); Monocytes % 12.4 %; Neutrophils # 2.2 K/mcL (1.6-8.9); Platelet Count 207 K/mcL (140-400); Red Cell Distribution Width 14.6 % (11.5-14.5); Segmented Neutrophils % 55.1 %
[2019-06-17 21:04] LABS: Prothrombin Time 11.8 Seconds (9.4-12.1)
[2019-06-17 21:06] LABS: Activated Partial Thrombo Time 29.6 Seconds (26.0-36.0)
[2019-06-17 21:20] LABS: Alanine Aminotransferase 34 Units/L (7-52); Albumin 3.9 g/dL (3.5-5.7); Albumin/Globulin Ratio 1.4 (1.1-2.2); Alkaline Phosphatase 70 Units/L (34-104); Aspartate Amino Transferase 28 Units/L (13-39); BUN/Creatinine Ratio 21 (6-26); Bilirubin,Direct 0.4 mg/dL (0.0-0.2); Bilirubin,Indirect 2.3 mg/dL (0.0-1.0); Bilirubin,Total 2.7 mg/dL (0.3-1.0); Blood Urea Nitrogen 20 mg/dL (8-23); Carbon Dioxide 26 mEq/L (23-29); Chloride 104 mEq/L (98-107); Globulin 2.7 g/dL (2.4-3.5); Glucose 158 mg/dL (70-105); Osmolality,Calculated 288 (280-300); Potassium 4.5 mEq/L (3.5-5.1); Sodium 136 mEq/L (136-145); Total Protein 6.6 g/dL (6.4-8.9); Troponin I < 0.03 ng/mL (< 0.04); eGFR For African Americans > 60 (> 60); eGFR For Non-African Americans > 60 (> 60)
[2019-06-17] MEDS ORDERED: *HR* HYDROmorphone (PF) 1 MG/ML SYRINGE IVP ONE (21:40)
[2019-06-17 23:22] LABS: Chlamydia Trachomatis DNA Ur NOT DETECTED (Not Detect)
[2019-06-17] MEDS ORDERED: *HR* OxyCODONE/APAP 5/325 TABLET PO ONE (23:26)
[2019-06-18] MEDS ORDERED: Ketorolac 15 MG/ML VIAL IVP ONE (03:14)
[2019-06-18] MEDS ORDERED: Ondansetron ODT 4 MG TAB.RAPDIS SL PRN (04:20)
[2019-06-18] MEDS ORDERED: Naloxone 0.4 MG/ML INJ IVP PRN ×2 (04:20→14:28)
[2019-06-18] MEDS: Aspirin Enteric Coated 81 MG Tablet PO SCH (08:19)
[2019-06-18] MEDS ORDERED: Torsemide 20 MG TABLET PO PRN (17:53)
[2019-06-18] MEDS ORDERED: Dextrose Gel 15 GM/37.5 ML TUBE PO PRN ×2 (17:55)
[2019-06-18] MEDS ORDERED: *HR* Dextrose 50 % in Water (Syg) 50 ML SYRINGE IVP PRN (17:55)
[2019-06-18] MEDS ORDERED: D5% in Water 1,000 ML IVC PRN (17:55)
[2019-06-18] MEDS ORDERED: *HR* Heparin 5,000 UNIT/ML VIAL SQ SCH (18:00)
[2019-06-18] MEDS: *HR* OxyCODONE/APAP 5/325 TABLET PO PRN (23:58)
[2019-06-19 05:21] LABS: Basophils % 0.6 %; Eosinophils # 0.3 K/mcL (0.0-0.6); Eosinophils % 6.2 %; Hematocrit 37.4 % (37.5-50.1); Hemoglobin 12.3 g/dL (12.9-16.9); Immature Granulocytes % 0.8 % (0-4); Lymphocytes # 1.1 K/mcL (0.6-4.6); Lymphocytes % 22.4 %; Mean Corpuscular HGB Conc 32.9 g/dL (31.6-35.5); Mean Corpuscular Hemoglobin 31.2 pg (28.0-33.3); Mean Corpuscular Volume 94.9 fL (83.0-100.0); Mean Platelet Volume 8.7 fL (9.4-12.4); Monocytes # 0.5 K/mcL (0.0-1.3); Monocytes % 10.5 %; Neutrophils # 2.9 K/mcL (1.6-8.9); Platelet Count 223 K/mcL (140-400); Red Blood Count 3.94 M/mcL (4.19-5.50); Red Cell Distribution Width 14.8 % (11.5-14.5); Segmented Neutrophils % 59.5 %; White Blood Count 4.9 K/mcL (4.3-11.1)
[2019-06-19 05:39] LABS: Albumin 3.8 g/dL (3.5-5.7); Albumin/Globulin Ratio 1.6 (1.1-2.2); Bilirubin,Direct 0.4 mg/dL (0.0-0.2); Bilirubin,Indirect 2.7 mg/dL (0.0-1.0); Bilirubin,Total 3.1 mg/dL (0.3-1.0); Globulin 2.4 g/dL (2.4-3.5); Total Protein 6.2 g/dL (6.4-8.9)
[2019-06-19 05:40] LABS: BUN/Creatinine Ratio 16 (6-26); Blood Urea Nitrogen 15 mg/dL (8-23); Calcium 8.6 mg/dL (8.6-10.3); Carbon Dioxide 27 mEq/L (23-29); Chloride 106 mEq/L (98-107); Glucose 114 mg/dL (70-105); Magnesium 1.8 mg/dL (1.6-2.6); Osmolality,Calculated 288 (280-300); Potassium 4.4 mEq/L (3.5-5.1); Sodium 138 mEq/L (136-145); eGFR For African Americans > 60 (> 60); eGFR For Non-African Americans > 60 (> 60)
[2019-06-19] MEDS: *HR* Enoxaparin 40 MG/0.4 ML SYRINGE SQ SCH (06:40)
[2019-06-19] MEDS: Insulin LISPRO 300 UNITS/3 ML VIAL SQ SCH ×2 (08:20→12:09)
[2019-06-19] MEDS: Aspirin Enteric Coated 81 MG Tablet PO SCH (08:23)
[2019-06-19 12:59] LABS: Estimated Average Glucose 88 mg/dl
[2019-06-19] MEDS: Acetaminophen 325 MG TABLET PO PRN ×2 (14:23→20:33)
[2019-06-19] MEDS ORDERED: Insulin LISPRO 300 UNITS/3 ML VIAL SQ SCH (21:00)
[2019-06-19] MEDS: *HR* OxyCODONE/APAP 5/325 TABLET PO PRN (22:25)
[2019-06-20 02:28] LABS: Basophils # 0.1 K/mcL (0.0-0.2); Eosinophils # 0.3 K/mcL (0.0-0.6); Eosinophils % 5.6 %; Hemoglobin 12.5 g/dL (12.9-16.9); Immature Granulocytes % 0.6 % (0-4); Lymphocytes # 1.4 K/mcL (0.6-4.6); Mean Corpuscular HGB Conc 33.8 g/dL (31.6-35.5); Mean Corpuscular Hemoglobin 31.6 pg (28.0-33.3); Mean Corpuscular Volume 93.4 fL (83.0-100.0); Mean Platelet Volume 8.6 fL (9.4-12.4); Monocytes # 0.6 K/mcL (0.0-1.3); Monocytes % 11.9 %; Neutrophils # 2.4 K/mcL (1.6-8.9); Platelet Count 228 K/mcL (140-400); Red Blood Count 3.96 M/mcL (4.19-5.50); Red Cell Distribution Width 14.6 % (11.5-14.5); Segmented Neutrophils % 50.9 %; White Blood Count 4.8 K/mcL (4.3-11.1)
[2019-06-20 02:49] LABS: Albumin 3.8 g/dL (3.5-5.7); Albumin/Globulin Ratio 1.5 (1.1-2.2); Bilirubin,Direct 0.4 mg/dL (0.0-0.2); Bilirubin,Indirect 3.2 mg/dL (0.0-1.0); Bilirubin,Total 3.6 mg/dL (0.3-1.0); Globulin 2.5 g/dL (2.4-3.5); Total Protein 6.3 g/dL (6.4-8.9)
[2019-06-20 02:50] LABS: BUN/Creatinine Ratio 17 (6-26); Blood Urea Nitrogen 19 mg/dL (8-23); Calcium 8.7 mg/dL (8.6-10.3); Carbon Dioxide 26 mEq/L (23-29); Chloride 104 mEq/L (98-107); Glucose 104 mg/dL (70-105); Osmolality,Calculated 287 (280-300); Potassium 4.6 mEq/L (3.5-5.1); Sodium 137 mEq/L (136-145); eGFR For African Americans > 60 (> 60); eGFR For Non-African Americans > 60 (> 60)
[2019-06-20] MEDS: *HR* Enoxaparin 40 MG/0.4 ML SYRINGE SQ SCH (05:56)
[2019-06-20] MEDS: Aspirin Enteric Coated 81 MG Tablet PO SCH (08:03)
[2019-06-20] MEDS: Acetaminophen 325 MG TABLET PO PRN (08:05)
[2019-06-20] MEDS: *HR* OxyCODONE/APAP 5/325 TABLET PO PRN (09:55)
[2019-06-20] MEDS ORDERED: *HR* HYDROmorphone (PF) 1 MG/ML SYRINGE IVP ONE (11:51)
[2019-06-20] MEDS ORDERED: Acetaminophen 325 MG TABLET PO PRN (13:49)
[2019-06-20 14:17] LABS: Hepatitis B Surface Antigen Nonreactive (Nonreactive)
[2019-06-20 17:03] LABS: Hepatitis C Virus Antibody Nonreactive (Nonreactive)
[2019-06-20 17:07] LABS: Hepatitis B Core IgM Nonreactive (Nonreactive)
[2019-06-20 17:11] LABS: Hepatitis A Antibody IgM Nonreactive (Nonreactive)
[2019-06-21] MEDS: *HR* Enoxaparin 40 MG/0.4 ML SYRINGE SQ SCH (03:59)
[2019-06-21] MEDS: Aspirin Enteric Coated 81 MG Tablet PO SCH (07:56)
[2019-06-21] MEDS: Ringers Solution, Lactated 1,000 ML IVC SCH ×2 (07:57→19:34)
[2019-06-21] MEDS ORDERED: Scopolamine Patch 1.5 MG PATCH.TD72 TD ONE (08:00)
[2019-06-21 09:25] LABS: Hematocrit 38.1 % (37.5-50.1); Mean Corpuscular HGB Conc 34.1 g/dL (31.6-35.5); Mean Corpuscular Hemoglobin 31.9 pg (28.0-33.3); Mean Corpuscular Volume 93.4 fL (83.0-100.0); Platelet Count 230 K/mcL (140-400); Red Blood Count 4.08 M/mcL (4.19-5.50); Red Cell Distribution Width 14.7 % (11.5-14.5); White Blood Count 4.6 K/mcL (4.3-11.1)
[2019-06-21] MEDS ORDERED: *HR* FentaNYL (PF) 100 MCG/2 ML VIAL ONE (10:04)
[2019-06-21] MEDS ORDERED: *HR* Propofol 200 MG/20 ML VIAL IVP ONE (10:05)
[2019-06-21] MEDS ORDERED: *HR* Midazolam HCl 2 MG/2 ML VIAL ONE (10:05)
[2019-06-21] MEDS ORDERED: Lidocaine -MPF 2% 2 ML VIAL ONE (10:07)
[2019-06-21] MEDS ORDERED: Dexamethasone 4 MG/ML VIAL ONE (10:08)
[2019-06-21] MEDS ORDERED: *HR* Rocuronium Bromide 50 MG/5 ML VIAL ONE (10:08)
[2019-06-21] MEDS ORDERED: Ondansetron 4 MG/2 ML VIAL ONE (10:08)
[2019-06-21] MEDS ORDERED: Bupivacaine/EPI 1:200k 0.5%PF 30 ML VIAL ONE (10:13)
[2019-06-21] MEDS ORDERED: *HR* HYDROmorphone PF 0.5 MG/0.5 ML SYRINGE IVP PRN (10:20)
[2019-06-21] MEDS ORDERED: *HR* OxyCODONE Immed Rel 5 MG TABLET PO PRN (10:20)
[2019-06-21] MEDS ORDERED: Ketorolac 15 MG/ML VIAL IVP ONE (10:20)
[2019-06-21] MEDS ORDERED: Ondansetron 4 MG/2 ML VIAL IVP ONE (10:20)
[2019-06-21] MEDS ORDERED: *HR* Remifentanil 1 MG VIAL IVP ONE (10:24)
[2019-06-21] MEDS ORDERED: Ringers Solution, Lactated 1,000 ML IVC SCH (10:30)
[2019-06-21] MEDS ORDERED: ceFAZolin 2,000 MG in 0.9 % Sodium Chloride 100 ML IVPB ONE (10:32)
[2019-06-21] MEDS ORDERED: Acetaminophen IV 1,000 MG/100 ML INFUS..BTL ONE (10:43)
[2019-06-21] MEDS ORDERED: Lidocaine -MPF 4% 5 ML AMPUL ONE (10:56)
[2019-06-21] MEDS ORDERED: Ketorolac 30 MG/ML VIAL ONE (11:57)
[2019-06-21] MEDS ORDERED: Ondansetron ODT 4 MG TAB.RAPDIS SL PRN (13:15)
[2019-06-21 16:23] LABS: Alanine Aminotransferase 38 Units/L (7-52); Albumin/Globulin Ratio 1.4 (1.1-2.2); Alkaline Phosphatase 57 Units/L (34-104); Aspartate Amino Transferase 31 Units/L (13-39); BUN/Creatinine Ratio 20 (6-26); Bilirubin,Total 4.1 mg/dL (0.3-1.0); Blood Urea Nitrogen 20 mg/dL (8-23); Carbon Dioxide 26 mEq/L (23-29); Chloride 103 mEq/L (98-107); Globulin 2.8 g/dL (2.4-3.5); Glucose 141 mg/dL (70-105); Osmolality,Calculated 285 (280-300); Potassium 4.9 mEq/L (3.5-5.1); Sodium 135 mEq/L (136-145); Total Protein 6.8 g/dL (6.4-8.9); eGFR For African Americans > 60 (> 60); eGFR For Non-African Americans > 60 (> 60)
[2019-06-22 05:37] LABS: Hematocrit 34.3 % (37.5-50.1); Hemoglobin 11.8 g/dL (12.9-16.9); Mean Corpuscular HGB Conc 34.4 g/dL (31.6-35.5); Mean Corpuscular Hemoglobin 31.9 pg (28.0-33.3); Mean Corpuscular Volume 92.7 fL (83.0-100.0); Mean Platelet Volume 8.9 fL (9.4-12.4); Platelet Count 225 K/mcL (140-400); Red Cell Distribution Width 14.7 % (11.5-14.5); White Blood Count 7.6 K/mcL (4.3-11.1)
[2019-06-22 05:57] LABS: Alanine Aminotransferase 30 Units/L (7-52); Albumin 3.8 g/dL (3.5-5.7); Albumin/Globulin Ratio 1.5 (1.1-2.2); Alkaline Phosphatase 51 Units/L (34-104); Aspartate Amino Transferase 23 Units/L (13-39); BUN/Creatinine Ratio 26 (6-26); Bilirubin,Total 3.3 mg/dL (0.3-1.0); Blood Urea Nitrogen 26 mg/dL (8-23); Calcium 8.8 mg/dL (8.6-10.3); Carbon Dioxide 25 mEq/L (23-29); Chloride 104 mEq/L (98-107); Globulin 2.5 g/dL (2.4-3.5); Glucose 149 mg/dL (70-105); Osmolality,Calculated 288 (280-300); Potassium 4.8 mEq/L (3.5-5.1); Sodium 135 mEq/L (136-145); Total Protein 6.3 g/dL (6.4-8.9); eGFR For African Americans > 60 (> 60); eGFR For Non-African Americans > 60 (> 60)
[2019-06-22] MEDS ORDERED: *HR* Enoxaparin 40 MG/0.4 ML SYRINGE SQ SCH (07:00)
[2019-06-22 07:18] VITALS: BP 132/89
[2019-06-22 07:18] LABS: AFP Tumor Marker Non-Pregnant 1 ng/mL (0-9); F-Actin (sm muscle) Ab IgG 10 Units (0-19)
[2019-06-22 07:22] LABS: ANA IgG by ELISA DETECTED (None Detected); Serine Protease-3 Antibody 4 AU/mL (0-19)
[2019-06-22] MEDS ORDERED: Aspirin Enteric Coated 81 MG Tablet PO SCH (09:00)
[2019-06-23 18:49] LABS: ANA HEp-2 IgG IFA DETECTED (<1:80); Anti Nuclear Ab Pattern SPECKLED
== END 2019-06-22 10:32 | disposition home or self-care (01) | DRG 351 ==
LOC: 2NENU 19:42 → EMEROOARM 19:42 → SUATTDRO 06-18 04:00 → 2NENU 06-18 04:35 → 3ANU 06-18 19:33
PROVIDERS: ADMIT Internal Medicine; ATTEND Family Medicine